=== PATIENT | female | born 1940 | race Caucasian/White ===

== ENCOUNTER 2017-04-06 08:00 | Outpatient (CLI) | payer MEDICARE, OTHER | END 2017-04-06 23:59 | disposition home or self-care (01) | LOC: LAB.R 08:00 | PROVIDERS: ATTEND Family Medicine | DX: R10.9 Unspecified abdominal pain (principal) | CPT/HCPCS: 87086 ==

== ENCOUNTER 2017-04-13 13:44 | Outpatient (CLI) | payer MEDICARE, OTHER ==
[2017-04-13] MEDS ORDERED: IOPAMIDOL-300 50 ML VIAL PO ONE (15:10)
[2017-04-13] MEDS ORDERED: IOPAMIDOL-300 100 ML VIAL IVP ONE (15:10)
--- NOTE | 2017-04-13 16:52 | CT Report ---
CONTRAST ENHANCED CT EXAM OF THE ABDOMEN AND PELVIS: 04/13/2017 COMPARISON: 06/04/2014 CLINICAL HISTORY: Abdominal pain. TECHNIQUE: The patient received 100 mL of Isovue-300 as a contrast agent. A CAT scan of the abdomen and pelvis was obtained at 5 x 5 mm intervals in axial, coronal and sagittal reconstructions. In accordance with CT protocol optimization, one or more of the following dose reduction techniques w ere utilized for this exam: automated exposure control, adjustment of mA and/or KV based on patient size, or use of iterative reconstructive technique. FINDINGS: Lower lobes of the lungs show no significant abnormality. Liver demonstrates once again s everal hypodense lesions within the liver. These show no change as compared to preceding exam, both in the size and number of these hypodense lesions. There are up to nine of these small lesions prese nt. This lack of change in number and size suggests that they represent small benign cysts. Spleen is normal. Pancreas shows no significant abnormality. Gallbladder shows no wall thickening. 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 No significant pyelocalyceal system dilatati on is seen. Ureters are not dilated. Adrenal glands appear normal. Surgical clips are once again n oted in and about the gastroesophageal junction. Periaortic and pericaval regions show no significant abnormality. Pelvis appears normal. Bowel gas pattern shows no significant abnormality. The small bowel appears normal. Colon shows a n ormal appendix of the retrocecal type. No significant diverticulosis is seen. Bones demonstrate mild anterior spurring in the lumbar spine. Moderate degree of disk space narrowin g is noted at L4-5 and L5-S1. IMPRESSION: MULTIPLE SMALL HYPODENSE LESIONS ARE ONCE AGAIN NOTED IN THE LIVER. THEY ARE UNCHANGED IN SIZE AND N UMBER SINCE PRECEDING EXAM OF 06/04/2014. THEY MOST LIKELY REPRESENT SMALL BENIGN LIVER CYSTS. PATIENT HAS A KNOWN HORSESHOE KIDNEY. MULTIPLE SURGICAL CLIPS ARE NOTED AT THE GASTROESOPHAGEAL JUNCTION ONCE AGAIN WITHOUT SIGNIFICANT YANNICK NGE. NORMAL APPENDIX. JOB #: [id number] EXT JOB #:[id number]
== END 2017-04-13 13:45 | disposition home or self-care (01) ==
LOC: DI 13:44
PROVIDERS: ATTEND Family Medicine
DX: K76.9 Liver disease, unspecified (principal)
CPT/HCPCS: 74177; Q9967

== ENCOUNTER 2017-11-15 06:16 | Outpatient (CLI) | payer MEDICARE, OTHER | END 2017-11-15 06:17 | disposition critical access hospital (66) | LOC: EMS 06:16 | PROVIDERS: ATTEND Surgery | DX: R07.9 Chest pain, unspecified (principal) | CPT/HCPCS: A0425; A0427 ==

== ENCOUNTER 2017-11-15 06:31 | Emergency (ER) | payer MEDICARE, OTHER ==
[2017-11-15 06:59] LABS: BASOPHILS % (AUTO) 0.5 %; EOSINOPHILS # (AUTO) 0.2 10^3/uL (0.0-0.7); EOSINOPHILS % (AUTO) 4.6 %; HGB - HEMOGLOBIN 14.3 g/dL (12.0-16.0); LYMPHOCYTES # (AUTO) 1.9 10^3/uL (1.5-3.5); LYMPHOCYTES % (AUTO) 41.1 %; MEAN CORPUSCULAR HEMOGLOBIN 30.3 pg (27.0-31.0); MEAN CORPUSCULAR HGB CONC 33.1 g/dL (32.0-36.0); MEAN CORPUSCULAR VOLUME 91.8 fL (81.0-99.0); MEAN PLATELET VOLUME 8.7 fL (7.9-10.8); MONOCYTES # (AUTO) 0.4 10^3/uL (0.0-1.0); MONOCYTES % (AUTO) 9.2 %; NEUTROPHILS % (AUTO) 44.6 %; PLT - PLATELET COUNT 200 10^3/uL (130-450); RED BLOOD COUNT 4.72 10^6/uL (4.20-5.40); RED CELL DISTRIBUTION WIDTH 13.5 % (12.0-15.0); WHITE BLOOD COUNT 4.6 x10^3/uL (4.8-10.8)
--- NOTE | 2017-11-15 07:03 | ED Physician Documentation ---
PD HPI CHEST PAIN - Stated complaint Stated Complaint: CP - Chief complaint Chief Complaint: Cardiac - History obtained from History obtained from: Patient - History of Present Illness Timing - onset: How many hours ago (3), Last night (3 am) Timing - onset during: Sleep Timing - duration: Hours (3) Quality: Aching, Indigestion, Pain Location: Substernal, Epigastric Radiation: Back, Left upper extremity Improved by: No: Rest Worsened by: No: Inspiration, Movement, Palpation Associated symptoms: Nausea. No: Shortness of air, Diaphoresis, Feeling faint / dizzy, General Weakness, Palpitations Similar symptoms before: No diagnosis (has had similar often but not as badly, often in AM or during sleep. Not exertional.) Recently seen: Clinic Review of Systems Ten Systems: 10 systems reviewed and negative Constitutional: denies: Fever, Chills Nose: denies: Rhinorrhea / runny nose, Congestion Throat: denies: Sore throat Cardiac: reports: Chest pain / pressure. denies: Palpitations, Pedal edema, Calf pain Respiratory: denies: Dyspnea, Cough GI: reports: Abdominal Pain (epigastric), Nausea. 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 11/15/17 Sucralfate 1 gm PO TID #20 tablet 11/15/17 - Allergies Allergies/Adverse Reactions: Allergies Allergy/AdvReac Type Severity Reaction Status Date / Time Penicillins Allergy Severe Respiratory Verified 11/15/17 06:50 acetaminophen [From Percocet] Allergy Mild Rash Verified 11/15/17 06:50 oxycodone HCl * Allergy Mild Rash Verified 11/15/17 06:50 [From Percocet] Sulfa (Sulfonamide Allergy Unknown Verified 11/15/17 06:51 Antibiotics) epinephrine AdvReac Severe hypoglycemi Verified 11/15/17 06:50 a - Social History Does the pt smoke?: No Smoking Status: Never smoker Does the pt drink ETOH?: Yes Does the pt have substance abuse?: No - Family History Family history: reports: CAD - Immunizations Immunizations are current?: Yes - POLST Patient has POLST: No PD ED PE NORMAL - Vitals Vital signs reviewed: Yes - General General: Alert and oriented X 3, Well developed/nourished - HEENT HEENT: Pharynx benign - Neck Neck: Supple, no meningeal sign, No adenopathy - Cardiac Cardiac: RRR, No murmur - Respiratory Respiratory: Clear bilaterally, Other (no chestwall tenderness) - Abdomen Abdomen: Normal bowel sounds, Soft, Non distended, No organomegaly, Other (some epigastric tenderness without guarding) - Back Back: No CVA TTP - Derm Derm: Normal color, Warm and dry - Neuro Neuro: Alert and oriented X 3, No motor deficit, Normal speech - Psych Psych: Normal mood, Normal affect Results - Vitals Vitals: Oxygen O2 Source Room air - EKG (time done) 06:37 Rate: Rate (enter#) (65) Rhythm: NSR [place]: Normal Intervals: Normal [place] QRS: Normal Ischemia: No: ST elevation c/w ischemia, ST depression - Labs Labs: Laboratory Tests 11/15/17 11/15/17 11/15/17 06:40 06:40 06:40 WBC 4.6 L RBC 4.72 Hgb 14.3 Hct 43.3 MCV 91.8 MCH 30.3 MCHC 33.1 RDW 13.5 Plt Count 200 MPV 8.7 Neut # 2.0 Lymph # 1.9 [place] # 0.4 Eos # 0.2 Baso # 0.0 Absolute Nucleated RBC 0.00 Nucleated RBC % 0.0 Sodium 139 Potassium 3.5 Chloride 108 Carbon Dioxide 25 Anion Gap 6.0 BUN 14 Creatinine 0.6 Estimated GFR (MDRD) 97 Glucose 102 H Calcium 8.1 L Total Bilirubin 0.4 AST 21 ALT 21 Alkaline Phosphatase 72 Troponin I < 0.04 Total Protein 5.7 L Albumin 3.4 Globulin 2.3 Albumin/Globulin Ratio 1.5 Lipase 29 - Rads (name of study) chest Radiology: Prelim report reviewed, EMP read contemporaneously (normal) PD MEDICAL DECISION MAKING - ED course Complexity details: considered differential (having frequent heartburn and using antacids often. More consistent symptoms here improved with GI cocktail. ECG, CXR and labs are okay. ), d/w patient Departure - Departure Disposition: 01 Home, Self Care Clinical Impression: Chest pain Qualifiers: Chest pain type: precordial pain Qualified Code(s): R07.2 - Precordial pain GERD (gastroesophageal reflux disease) Qualifiers: Esophagitis presence: with esophagitis Qualified Code(s): K21.0 - Gastro- esophageal reflux disease with esophagitis Condition: Stable Record reviewed to determine appropriate education?: Yes Instructions: ED GERD Follow-Up: Paola Tyler DO [Primary Care Provider] - Linette Fernandez MD [Provider Admit Priv/Credential] - Prescriptions: Omeprazole 20 mg PO DAILY #30 capsule. Sucralfate 1 gm PO TID #20 tablet Comments: This sounds like an irritation of the stomach and esophagus, commonly related to reflux. However there could be just irritation there separately. Given your symptoms recently, you could make sense to meet with a GI specialist to discuss potential EGD (scope) to evaluate the esophagus and stomach. Meanwhile take omeprazole acid reducing medicine daily for the next month and for the first week also use sucralfate to coat the esophagus and stomach to improve symptoms. There is no signs of heart disease going on at this time. Follow-up with your primary care as needed. Discharge Date/Time: 11/15/17 09:08
[2017-11-15 07:09] LABS: ALBUMIN 3.4 g/dL (3.2-5.5); ALBUMIN/GLOBULIN RATIO 1.5 (1.0-2.2); BILIRUBIN,TOTAL 0.4 mg/dL (0.2-1.0); CALCIUM 8.1 mg/dL (8.5-10.3); CREATININE 0.6 mg/dL (0.4-1.0); TOTAL PROTEIN 5.7 g/dL (6.7-8.2)
[2017-11-15] MEDS ORDERED: FAMOTIDINE 20 MG TABLET PO STA (07:24)
[2017-11-15] MEDS ORDERED: LIDOCAINE VISCOUS 2% 15 ML UDC MM STA (07:24)
[2017-11-15] MEDS ORDERED: MAG HYDROX/AL HYDROX/SIMETH 30 ML UDC PO STA (07:24)
--- NOTE | 2017-11-15 07:54 | XRAY Report ---
EXAM: CHEST RADIOGRAPHY EXAM DATE: 11/15/2017 07:48 AM. CLINICAL HISTORY: Acute onset of left-sided chest pain. COMPARISON: 06/04/2014. TECHNIQUE: 2 views. FINDINGS: Lungs/Pleura: Lung volumes upper normal. No consolidation. No vascular congestion. No pneumothorax. N o pleural effusions. Mediastinum: Heart size is upper normal. Aorta is mildly tortuous. Other: No acute osseous abnormalities. Degenerative changes of the thoracic spine. IMPRESSION: 1. No acute disease in the chest. [facility] Referring Provider Line: [phone] SITE ID: [id number]
[2017-11-15 08:55] VITALS: BP 120/57
== END 2017-11-15 09:08 | disposition home or self-care (01) ==
LOC: EDUNIT# → ED 06:31
DX: R07.2 Precordial pain (principal); K21.0 Gastro-esophageal reflux disease with esophagitis; E78.00 Pure hypercholesterolemia, unspecified; Z87.442 Personal history of urinary calculi
CPT/HCPCS: 36415; 71046; 80053; 83690; 84484; 85025; 93005; 99284; A9270

== ENCOUNTER 2018-01-26 12:47 | Outpatient (CLI) | payer MEDICARE, OTHER | END 2018-01-26 12:48 | disposition home or self-care (01) | LOC: DI 12:47 | PROVIDERS: ATTEND Physician Assistant Medical | DX: R01.1 Cardiac murmur, unspecified (principal); I51.9 Heart disease, unspecified; I51.7 Cardiomegaly | CPT/HCPCS: 93306 ==

== ENCOUNTER 2018-05-16 11:50 | Emergency (ER) | payer MEDICARE, OTHER ==
--- NOTE | 2018-05-16 16:17 | ED Physician Documentation ---
History of Present Illness - Stated complaint Stated Complaint: L FOOT SWELLING - Chief complaint Chief Complaint: Ext Problem - Additonal information Additional information: hx from pt 77 f factor V leiden nor clots so not on blood thinners dropped a rck on her foot 5 weeks ago inc pain and swelling to lat foot reently no calf swelling but painful but that coud be her fibromyalgia as well and some discoloration to the R foot where she had neuroma surgery in 1995 so she was concerned about blood clots went to Dr Duran office and states nurse there told her they could not do xrays or ultrasounds and so pt would need to go to the ER for those tests no CP or SOA Review of Systems Cardiac: denies: Chest pain / pressure Respiratory: denies: Dyspnea Musculoskeletal: reports: Extremity pain. 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 11/15/17 05/16/18 Sucralfate 1 gm PO TID #20 tablet 11/15/17 05/16/18 - Allergies Allergies/Adverse Reactions: Allergies Allergy/AdvReac Type Severity Reaction Status Date / Time Penicillins Allergy Severe Respiratory Verified 05/16/18 14:10 oxycodone HCl * Allergy Mild Rash Verified 05/16/18 14:10 [From Percocet] Sulfa (Sulfonamide Allergy Unknown Verified 05/16/18 14:10 Antibiotics) epinephrine AdvReac Severe hypoglycemi Verified 05/16/18 14:10 a - Social History Does the pt smoke?: No Smoking Status: Never smoker Does the pt drink ETOH?: Yes Does the pt have substance abuse?: No - Immunizations Immunizations are current?: Yes - POLST Patient has POLST: No PD ED PE NORMAL - Vitals Vital signs reviewed: Yes - Cardiac Cardiac: RRR - Respiratory Respiratory: No respiratory distress, Clear bilaterally - Extremities Extremities: Other (RLE, two dorsla foot surgical scars, some patchy mild discoloration that is not warm or c/w cellultiis, cool but stong pulse and cap refll. LLE swelling to lateral mid foot and TTP, calf TTP but not sweollne, MSV intact) Results - Vitals Vitals: Vital Signs - 24 hr 05/16/18 05/16/18 12:21 15:02 Temperature 36.1 C L 36.5 C Heart Rate 70 70 Respiratory 18 18 Rate Blood Pressure 147/77 H 131/60 H O2 Saturation 97 97 Oxygen O2 Source Room air - Rads (name of study) loida LE dopplers Radiology: See rad report (no DVT) foot Radiology: See rad report (no fx) PD MEDICAL DECISION MAKING - Sepsis Event Vital Signs: Vital Signs - 24 hr 05/16/18 05/16/18 12:21 15:02 Temperature 36.1 C L 36.5 C Heart Rate 70 70 Respiratory 18 18 Rate Blood Pressure 147/77 H 131/60 H O2 Saturation 97 97 Oxygen O2 Source Room air Departure - Departure Disposition: 01 Home, Self Care Clinical Impression: Foot swelling Condition: Good Follow-Up: Paola Tyler DO [Provider Admit Priv/Credential] - Comments: The ultrasounds do not show any blood clot and the xray does not show any fractures Recommend ice for 20 minutes every few hours and elevation to decrease the swelling It is fine to walk.
--- NOTE | 2018-05-16 16:54 | Ultrasound Report ---
Procedure Date: 05/16/2018 Accession Number: [id number] / [id number] Procedure: US - Duplex Ext Veins Bilateral CPT Code: FULL RESULT: EXAM: BILATERAL LOWER EXTREMITY VENOUS ULTRASOUND. EXAM DATE: 05/16/2018 04:23 PM. CLINICAL HISTORY: Factor V Leiden def pain, swell, discolor. COMPARISON: 08/24/2017. TECHNIQUE: Real-time sonographic vascular imaging was performed by the business administrator through the lower extremities utilizing both color-flow and Doppler spectral analysis. Multiple guest experience representative static images were saved for review. FINDINGS: Right: Common Femoral Vein (CFV): Normal. CFV-GSV Junction: Normal. Profunda Femoral Vein (PFV): Normal. Femoral Vein (FV) Prox: Normal. Femoral Vein (FV) Mid: Normal. Femoral Vein (FV) Dist: Normal. Popliteal Vein: Normal. Posterior Tibial Veins: Normal. Peroneal Veins: Normal. Left: Common Femoral Vein (CFV): Normal. CFV-GSV Junction: Normal. Profunda Femoral Vein (PFV): Normal. Femoral Vein (FV) Prox: Normal. Femoral Vein (FV) Mid: Normal. Femoral Vein (FV) Dist: Normal. Popliteal Vein: Normal. Posterior Tibial Veins: Normal. Peroneal Veins: Normal. Other: None. IMPRESSION: No evidence for deep venous thrombosis bilaterally. [facility]
--- NOTE | 2018-05-16 16:56 | XRAY Report ---
Procedure Date: 05/16/2018 Accession Number: [id number] / [id number] Procedure: XR - Foot 3 View LT CPT Code: FULL RESULT: EXAM: LEFT FOOT RADIOGRAPHY. EXAM DATE: 05/16/2018 03:15 PM. CLINICAL HISTORY: Dropped rock on foot 5 weeks ago, still hurts. COMPARISON: 05/08/2011. TECHNIQUE: 3 views. FINDINGS: Bones: Normal. No fractures or bone lesions. Joints: No dislocation. Soft Tissues: Mild soft tissue swelling at the first MTP joint. IMPRESSION: 1. No fracture. 2. No dislocation. Mild soft tissue swelling at the first MTP joint. [facility]
[2018-05-16 17:22] VITALS: BP 141/71
== END 2018-05-16 17:21 | disposition home or self-care (01) ==
LOC: ED 11:50
DX: M79.89 Other specified soft tissue disorders (principal); M79.672 Pain in left foot; D68.51 Activated protein C resistance; E78.00 Pure hypercholesterolemia, unspecified; K21.9 Gastro-esophageal reflux disease without esophagitis; Z87.442 Personal history of urinary calculi
CPT/HCPCS: 93970; 99283

== ENCOUNTER 2018-06-08 09:58 | Outpatient (CLI) | payer MEDICARE, OTHER ==
--- NOTE | 2018-06-09 16:09 | MRI Report ---
Procedure Date: 06/08/2018 Accession Number: [id number] / [id number] Procedure: MRI - Foot LT W/O CPT Code: FULL RESULT: EXAM: LEFT MIDFOOT MRI WITHOUT CONTRAST EXAM DATE: 06/08/2018 11:06 AM. CLINICAL HISTORY: FOOT JOINT PAIN, LEFT. COMPARISON: 05/16/2018 left foot radiographs. TECHNIQUE: Multiplanar, multisequence T1-weighted and fluid-sensitive sequences of the midfoot without contrast. Other: None. FINDINGS: Bones: No fractures. No osseous lesions. There is marrow edema within the third and fourth metatarsal bases. No cortical thickening or visible periostitis. There is also small focus of subchondral edema within the navicular at the talonavicular joint. Marrow signal is otherwise normal. Articular Cartilage: Unremarkable. Ligaments: The visualized intertarsal, intermetatarsal, and tarsometatarsal ligaments are intact. This includes the Lisfranc ligament. The visualized collateral ligaments are intact. Tendons: The flexor and extensor tendons are unremarkable. Musculature: No edema or fatty atrophy. Other: No effusions. The visualized portion of the tarsal tunnel is unremarkable. No intermetatarsal bursitis. The subcutaneous tissues are unremarkable. IMPRESSION: 1. Mild marrow edema within the third and fourth metatarsal bases is somewhat nonspecific and may reflect stress reaction or potentially early degenerative changes, although the tarsometatarsal joints themselves are normal in appearance. No evidence of acute fracture. [facility] MUSCULOSKELETAL RADIOLOGY SECTION
== END 2018-06-08 09:59 | disposition home or self-care (01) ==
LOC: DI 09:58
PROVIDERS: ATTEND Family Medicine
DX: M79.672 Pain in left foot (principal)

== ENCOUNTER 2018-06-19 08:40 | Outpatient (CLI) | payer MEDICARE, OTHER ==
[2018-06-19 12:24] LABS: BASOPHILS % (AUTO) 0.6 %; EOSINOPHILS # (AUTO) 0.2 10^3/uL (0.0-0.7); EOSINOPHILS % (AUTO) 4.1 %; HGB - HEMOGLOBIN 14.5 g/dL (12.0-16.0); LYMPHOCYTES # (AUTO) 1.3 10^3/uL (1.5-3.5); LYMPHOCYTES % (AUTO) 28.2 %; MEAN CORPUSCULAR HEMOGLOBIN 31.2 pg (27.0-31.0); MEAN CORPUSCULAR HGB CONC 34.3 g/dL (32.0-36.0); MEAN PLATELET VOLUME 8.9 fL (7.9-10.8); MONOCYTES # (AUTO) 0.4 10^3/uL (0.0-1.0); MONOCYTES % (AUTO) 9.4 %; NEUTROPHILS # (AUTO) 2.7 10^3/uL (1.5-6.6); NEUTROPHILS % (AUTO) 57.7 %; PLT - PLATELET COUNT 195 10^3/uL (130-450); RED BLOOD COUNT 4.63 10^6/uL (4.20-5.40); RED CELL DISTRIBUTION WIDTH 13.8 % (12.0-15.0); WHITE BLOOD COUNT 4.6 x10^3/uL (4.8-10.8)
[2018-06-19 12:25] LABS: ALBUMIN/GLOBULIN RATIO 1.5 (1.0-2.2); ALKALINE PHOSPHATASE 84 IU/L (42-121); ALT ALANINE AMINOTRANSFERASE 22 IU/L (10-60); AST ASPARTATE AMINOTRANSFERASE 22 IU/L (10-42); BILIRUBIN,TOTAL 0.8 mg/dL (0.2-1.0); BUN - BLOOD UREA NITROGEN 17 mg/dL (6-20); CALCIUM 9.5 mg/dL (8.5-10.3); CARBON DIOXIDE - CO2 29 mmol/L (21-32); CHLORIDE 102 mmol/L (101-111); CHOL/HDL RATIO 4.1 (<4.4); CHOLESTEROL 151 mg/dL; CREATININE 0.7 mg/dL (0.4-1.0); GFR - MDRD 81 (>89); GLUCOSE 108 mg/dL (70-100); HDL CHOLESTEROL 37 mg/dL; LDL CHOLESTEROL,CALCULATED 93 mg/dL; LDL/HDL RATIO 2.5 (<4.4); SODIUM 139 mmol/L (135-145); TOTAL PROTEIN 6.6 g/dL (6.7-8.2); VLDL CHOLESTEROL 21 mg/dL
[2018-06-19 12:33] LABS: HB2 TOTAL 15.1 g/dL; HEMOGLOBIN A1C 0.6 g/dL; HEMOGLOBIN A1C % 5.8 % (4.6-6.2)
[2018-06-19 12:36] LABS: THYROID STIMULATING HORMONE 1.78 uIU/mL (0.34-5.60)
== END 2018-06-19 08:41 ==
LOC: LAB.WCP 08:40
PROVIDERS: ATTEND Family Medicine
DX: R20.9 Unspecified disturbances of skin sensation (principal); E78.5 Hyperlipidemia, unspecified; R73.01 Impaired fasting glucose; E03.9 Hypothyroidism, unspecified
CPT/HCPCS: 36415; 80053; 80061; 82607; 83036; 83721; 84443; 85025

== ENCOUNTER 2019-04-27 10:59 | Outpatient (CLI) | payer MEDICARE, OTHER | END 2019-04-27 11:00 | disposition critical access hospital (66) | LOC: EMS 10:59 | PROVIDERS: ATTEND Surgery | DX: R55 Syncope and collapse (principal); R53.1 Weakness; R19.7 Diarrhea, unspecified | CPT/HCPCS: A0425; A0429 ==

== ENCOUNTER 2019-04-27 11:18 | Emergency (ER) | payer MEDICARE, OTHER ==
[2019-04-27 11:44] LABS: BASOPHILS % (AUTO) 0.5 %; EOSINOPHILS # (AUTO) 0.1 10^3/uL (0.0-0.7); EOSINOPHILS % (AUTO) 2.3 %; HGB - HEMOGLOBIN 15.2 g/dL (12.0-16.0); LYMPHOCYTES # (AUTO) 1.3 10^3/uL (1.5-3.5); LYMPHOCYTES % (AUTO) 29.2 %; MEAN CORPUSCULAR HGB CONC 33.6 g/dL (32.0-36.0); MEAN CORPUSCULAR VOLUME 92.1 fL (81.0-99.0); MEAN PLATELET VOLUME 10.4 fL (7.9-10.8); MONOCYTES # (AUTO) 0.4 10^3/uL (0.0-1.0); MONOCYTES % (AUTO) 8.9 %; NEUTROPHILS # (AUTO) 2.6 10^3/uL (1.5-6.6); NEUTROPHILS % (AUTO) 58.6 %; PLT - PLATELET COUNT 197 10^3/uL (130-450); RED BLOOD COUNT 4.91 10^6/uL (4.20-5.40); RED CELL DISTRIBUTION WIDTH 13.2 % (12.0-15.0); WHITE BLOOD COUNT 4.4 x10^3/uL (4.8-10.8)
[2019-04-27 11:57] LABS: ALBUMIN 4.1 g/dL (3.2-5.5); ALBUMIN/GLOBULIN RATIO 1.6 (1.0-2.2); BILIRUBIN,TOTAL 0.7 mg/dL (0.2-1.0); CALCIUM 9.8 mg/dL (8.5-10.3); CREATININE 0.7 mg/dL (0.4-1.0); TOTAL PROTEIN 6.7 g/dL (6.7-8.2)
[2019-04-27] MEDS ORDERED: SODIUM CHLORIDE 0.9% 1,000 ML IV ONE (12:10)
--- NOTE | 2019-04-27 12:12 | ED Physician Documentation ---
History of Present Illness - Stated complaint Stated Complaint: NEAR SYNCOPE - Chief complaint Chief Complaint: General - History obtained from History obtained from: Patient, Family, EMS - History of Present Illness Timing: Today (78-year-old woman who is been on the keto diet for a week and has had a couple of episodes of diarrhea this week without abdominal pain or nausea was in nondenominational today and felt dizzy for about 5 minutes and then helped herself to the ground without syncope. Now feels back to normal. There was no chest pain or trouble breathing with this. No calf pain or pedal edema. Of note she also has a complaint of several months worth of a constant frontal and occipital headache that she attributed to sinus symptoms, but no relief from allergy or decongestant agents..) Review of Systems Ten Systems: 10 systems reviewed and negative Constitutional: denies: Fever, Chills, Fatigue Nose: reports: Rhinorrhea / runny nose, Sinus pressure / pain Throat: denies: Sore throat Respiratory: denies: Dyspnea, Cough GI: reports: Diarrhea. 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 11/15/17 05/16/18 Sucralfate 1 gm PO TID #20 tablet 11/15/17 05/16/18 - Allergies Allergies/Adverse Reactions: Allergies Allergy/AdvReac Type Severity Reaction Status Date / Time Penicillins Allergy Severe Respiratory Verified 05/16/18 14:10 oxycodone HCl * Allergy Mild Rash Verified 05/16/18 14:10 [From Percocet] Sulfa (Sulfonamide Allergy Unknown Verified 05/16/18 14:10 Antibiotics) epinephrine AdvReac Severe hypoglycemi Verified 05/16/18 14:10 a - Social History Does the pt smoke?: No Smoking Status: Never smoker Does the pt drink ETOH?: Yes Does the pt have substance abuse?: No - Immunizations Immunizations are current?: Yes - POLST Patient has POLST: No PD ED PE NORMAL - Vitals Vital signs reviewed: Yes - General General: Alert and oriented X 3, No acute distress - HEENT HEENT: PERRL, EOMI - Neck Neck: Supple, no meningeal sign, No bony TTP - Cardiac Cardiac: RRR, No murmur - Respiratory Respiratory: No respiratory distress, Clear bilaterally - Abdomen Abdomen: Normal bowel sounds, Soft, Non tender - Back Back: No CVA TTP, No spinal TTP - Derm Derm: Normal color, Warm and dry - Extremities Extremities: No edema, No calf tenderness / cord - Neuro Neuro: Alert and oriented X 3, supervisor liquefaction 2-12 intact, No motor deficit, No sensory deficit, Normal speech Results - Vitals Vitals: Vital Signs - 24 hr 04/27/19 04/27/19 11:22 11:36 Temperature 36.5 C 36.5 C Heart Rate 83 73 Respiratory 16 14 Rate Blood Pressure 148/80 H 125/63 O2 Saturation 96 95 Oxygen O2 Source Room air - EKG (time done) 1127 Rate: Rate (enter#) (75) Rhythm: NSR [place]: Normal QRS: Low voltage Ischemia: Non specific changes (submm ALMA inferior, no chg from 11/15/17) Computer interpretation: Agree with computer - Labs Labs: Laboratory Tests 04/27/19 04/27/19 11:38 11:38 WBC 4.4 L RBC 4.91 Hgb 15.2 Hct 45.2 MCV 92.1 MCH 31.0 MCHC 33.6 RDW 13.2 Plt Count 197 MPV 10.4 Neut # (Auto) 2.6 Lymph # (Auto) 1.3 L [place] # (Auto) 0.4 Eos # (Auto) 0.1 Baso # (Auto) 0.0 Absolute Nucleated RBC 0.00 Nucleated RBC % 0.0 Sodium 138 Potassium 4.2 Chloride 103 Carbon Dioxide 24 Anion Gap 11.0 BUN 20 Creatinine 0.7 Estimated GFR (MDRD) 81 L Glucose 103 H Calcium 9.8 Total Bilirubin 0.7 AST 25 ALT 27 Alkaline Phosphatase 81 Total Protein 6.7 Albumin 4.1 Globulin 2.6 Albumin/Globulin Ratio 1.6 Lipase 38 PD MEDICAL DECISION MAKING - ED course ED course: 78-year-old woman with presyncopal episode preceded by a week's worth of the keto diet And some diarrheal illness suggestive of dehydration. She was administered IV fluids here and felt fine. The remainder of her work-up was negative, although the other concerning issue was several months worth of a basically constant headache which is of course concerning for mass lesion and as such a head CT was done without pertinent positive findings. Departure - Departure Clinical Impression: Pre-syncope, Dehydration, Headache Condition: Good Record reviewed to determine appropriate education?: Yes Health Concerns: dizzy episode, headache Plan of Treatment: Labs, CTH, and IVF Care Goals: prevent further dehydration with increased fluid intake. Followup with Dr Julio Cesar aldrich Assessment: as above Instructions: ED Dehydration, ED Near Syncope Unkn
[2019-04-27 13:52] VITALS: BP 139/80
--- NOTE | 2019-04-27 13:58 | CT Report ---
Reason: headache Procedure Date: 04/27/2019 Accession Number: [id number] / [id number] Procedure: CT - HEAD WO CPT Code: FULL RESULT: EXAM: CT HEAD EXAM DATE: 04/27/2019 12:33 PM. CLINICAL HISTORY: Headache. COMPARISON: HEAD 07/24/2010 2:04 PM MRI BRAIN W TECHNIQUE: Multiaxial CT images were obtained from the foramen magnum to the vertex. Reformats: Sagittal and coronal. IV contrast: None. In accordance with CT protocol optimization, one or more of the following dose reduction techniques were utilized for this exam: automated exposure control, adjustment of mA and/or KV based on patient size, or use of iterative reconstructive technique. FINDINGS: Parenchyma: No evidence of an acute vascular insult or acute parenchymal hemorrhage. No midline shift. No mass-effect is mild parenchymal volume loss with periventricular regions of low attenuation. No midline shift. Extraaxial Spaces: Normal for age. No subdural or epidural collections identified. Ventricles: Normal in size and position. Sinuses and Orbits: Imaged paranasal sinuses, orbits, and mastoids show no significant abnormality. Bones: No evidence of fracture or calvarial defect. Other: Globes and orbits are unremarkable except for changes status post lens surgery. Minimal vascular calcifications. IMPRESSION: 1. No acute intracranial abnormality is identified. [facility]
== END 2019-04-27 13:51 | disposition home or self-care (01) ==
LOC: EDUNIT# → ED 11:18
DX: E86.0 Dehydration (principal)
CPT/HCPCS: 36415; 70450; 80053; 83690; 85025; 93005; 96360; 99283; 99284

== ENCOUNTER 2019-04-28 12:32 | Outpatient (CLI) | payer MEDICARE, OTHER ==
[2019-04-28] MEDS ORDERED: IOVERSOL 320 100 ML VIAL IVP ONE ×2 (12:43→15:46)
--- NOTE | 2019-04-28 13:57 | CT Report ---
Reason: NEAR SYNCOPE, FACTOR V LEIDEN MUTATION, HETEROZYGO Procedure Date: 04/28/2019 Accession Number: [id number] / [id number] Procedure: CT - ANGIO CHEST W/WO CPT Code: FULL RESULT: EXAM: CT ANGIOGRAM CHEST EXAM DATE: 04/28/2019 01:27 PM. CLINICAL HISTORY: Near syncope, factor V Leiden mutation, heterozygous. COMPARISON: ABDOMEN/PELVIS W/ 04/13/2017 3:02 PM. TECHNIQUE: Routine helical imaging was performed through the chest in the pulmonary arterial phase. IV Contrast: OPTI 320 80ML. Reconstructions: Coronal 3-D MIP reconstructions.Sagittal and coronal. In accordance with CT protocol optimization, one or more of the following dose reduction techniques were utilized for this exam: automated exposure control, adjustment of mA and/or KV based on patient size, or use of iterative reconstructive technique. FINDINGS: Pulmonary Arteries: Diagnostic quality: Adequate through the segmental arteries. No evidence for acute or chronic pulmonary emboli. RV/LV is within normal limits. There is no interventricular septal bowing. There is no reflux of contrast material in the IVC. Lungs/Pleura: There is a 1.0 x 0.7 cm partially calcified right lower lobe nodule with nearby spiculation, see image 104 series 11 and image 78 series 5. No other lung mass. Pleural spaces are clear. Mediastinum: Normal. No cardiac enlargement or adenopathy. Thoracic Aorta: Unremarkable. Upper Abdomen: Again seen are multiple hepatic hypodensities which are not characterized on this study. Prior fundoplication with small hernia. Other: None. IMPRESSION: No pulmonary embolism. Recommend follow-up of the described nodule(s) according to the following guidelines: Fleischner Society Recommendations 2017 MacMahon et al. Radiology 2017 Solid Nodules-Low Risk Patients: >8 mm (single) -Consider CT, PET/CT, or tissue sampling at 3 months Solid Nodules-High Risk Patients: >8 mm (single) -Consider CT, PET/CT, or tissue sampling at 3 months Redemonstration of uncharacterized hypodense hepatic lesions, not significantly changed as partially visualized. If clinically indicated, right upper quadrant ultrasound could be used to determine whether these represent cysts. RADIA
== END 2019-04-28 12:33 | disposition home or self-care (01) ==
LOC: DI 12:32
PROVIDERS: ATTEND Family Medicine
DX: R55 Syncope and collapse (principal); D68.51 Activated protein C resistance; E03.9 Hypothyroidism, unspecified
CPT/HCPCS: 36415; 71275; 82962; 84443; Q9967

== ENCOUNTER 2019-07-31 12:30 | Outpatient (CLI) | payer MEDICARE, OTHER ==
--- NOTE | 2019-08-04 16:11 | CT Report ---
Reason: PULMONARY NODULE Procedure Date: 07/31/2019 Accession Number: [id number] / [id number] Procedure: CT - CHEST WO CPT Code: FULL RESULT: EXAM: CT CHEST EXAM DATE: 07/31/2019 12:50 PM. CLINICAL HISTORY: PULMONARY NODULE. COMPARISONS: CHEST ANGIO 04/28/2019 1:19 PM ABDOMEN/PELVIS W/ 04/13/2017 3:02 PM CHEST 2 VIEW 11/15/2017 7:26 AM. TECHNIQUE: Routine helical CT imaging was performed through the chest. IV contrast: None. Reconstructions: Coronal and sagittal. In accordance with CT protocol optimization, one or more of the following dose reduction techniques were utilized for this exam: automated exposure control, adjustment of mA and/or KV based on patient size, or use of iterative reconstructive technique. FINDINGS: Lungs/Pleura: Again seen is a 1 x 0.6 cm partially calcified spiculated nodule right lower lobe lung (4/179), stable. Lungs otherwise clear. No additional mass or infiltrate seen. Mediastinum: Aortic and coronary artery calcification, stable. Heart size normal. No lymphadenopathy. Bones: Unremarkable. Visualized Abdomen: Surgical clips adjacent to the gastroesophageal junction, stable. Visualized upper abdomen otherwise unremarkable. Other: None. IMPRESSION: 1. Stable 1 x 0.6 cm partially calcified right lower lobe pulmonary nodule, unchanged from 04/28/2019. Continued follow-up is recommended with either follow-up CT in 9 months, PET CT and/or biopsy. RADIA
== END 2019-07-31 12:31 | disposition home or self-care (01) ==
LOC: DI 12:30
PROVIDERS: ATTEND Internal Medicine
DX: R91.1 Solitary pulmonary nodule (principal)
CPT/HCPCS: 71250

== ENCOUNTER 2019-08-08 08:00 | Outpatient (CLI) | payer MEDICARE, OTHER ==
[2019-08-08 13:03] LABS: CHOL/HDL RATIO 3.9 (<4.4); CHOLESTEROL 159 mg/dL; HDL CHOLESTEROL 41 mg/dL; LDL CHOLESTEROL,CALCULATED 90 mg/dL; LDL/HDL RATIO 2.2 (<4.4); VLDL CHOLESTEROL 28 mg/dL
== END 2019-08-08 23:59 | disposition home or self-care (01) ==
LOC: LAB.WCP 08:00
PROVIDERS: ATTEND Nurse Practitioner Gerontology
DX: E78.5 Hyperlipidemia, unspecified (principal)
CPT/HCPCS: 36415; 80061; 83721

== ENCOUNTER 2019-11-06 11:33 | Outpatient (CLI) | payer MEDICARE, OTHER | END 2019-11-06 11:34 | disposition critical access hospital (66) | LOC: EMS 11:33 | PROVIDERS: ATTEND Surgery | DX: R10.10 Upper abdominal pain, unspecified (principal) | CPT/HCPCS: A0425; A0429 ==

== ENCOUNTER 2019-11-06 11:50 | Day surgery (SDC) | payer MEDICARE, OTHER ==
[2019-11-06 12:29] LABS: BASOPHILS % (AUTO) 0.4 %; EOSINOPHILS # (AUTO) 0.2 10^3/uL (0.0-0.7); EOSINOPHILS % (AUTO) 3.1 %; HGB - HEMOGLOBIN 15.9 g/dL (12.0-16.0); LYMPHOCYTES # (AUTO) 1.7 10^3/uL (1.5-3.5); LYMPHOCYTES % (AUTO) 34.7 %; MEAN CORPUSCULAR HGB CONC 32.8 g/dL (32.0-36.0); MEAN CORPUSCULAR VOLUME 94.5 fL (81.0-99.0); MEAN PLATELET VOLUME 10.8 fL (7.9-10.8); MONOCYTES # (AUTO) 0.4 10^3/uL (0.0-1.0); NEUTROPHILS # (AUTO) 2.6 10^3/uL (1.5-6.6); NEUTROPHILS % (AUTO) 52.6 %; PLT - PLATELET COUNT 223 10^3/uL (130-450); RED BLOOD COUNT 5.13 10^6/uL (4.20-5.40); RED CELL DISTRIBUTION WIDTH 13.6 % (12.0-15.0); WHITE BLOOD COUNT 4.9 x10^3/uL (4.8-10.8)
[2019-11-06 12:38] LABS: ALBUMIN 4.5 g/dL (3.2-5.5); ALBUMIN/GLOBULIN RATIO 1.5 (1.0-2.2); BILIRUBIN,TOTAL 0.6 mg/dL (0.2-1.0); CALCIUM 9.7 mg/dL (8.5-10.3); CREATININE 0.8 mg/dL (0.4-1.0); TOTAL PROTEIN 7.5 g/dL (6.7-8.2)
[2019-11-06] MEDS ORDERED: HYDROmorphone 1 MG/ML CARPUJECT IVP STA (12:43)
[2019-11-06] MEDS ORDERED: ONDANSETRON 4 MG/2 ML VIAL IVP STA (12:43)
--- NOTE | 2019-11-06 12:45 | ED Physician Documentation ---
PD HPI ABD PAIN - Stated complaint Stated Complaint: ABD PX - Chief complaint Chief Complaint: Abd Pain - History obtained from History obtained from: Patient - History of Present Illness Timing - onset: Today (79-year-old woman with history of hiatal hernia and Rafaela fundoplication later status post dilation presents with sudden severe epigastric pain radiating to left shoulder after eating a small breakfast this morning. She is been on the keto diet for the last 7 months or so, "but I cheat a lot." Pain is severe and associated with nausea and vomiting of mucus. She is able to keep water down. Had a fairly normal bowel movement this morning. No fevers. She still has her gallbladder. Reportedly prehospital EKG was normal but it does not accompany her.) Review of Systems Ten Systems: 10 systems reviewed and negative Constitutional: denies: Fever, Chills Throat: denies: Dental pain / toothache, Sore throat Cardiac: denies: Chest pain / pressure, Palpitations, Pedal edema, Calf pain Respiratory: denies: Dyspnea, Cough PD PAST MEDICAL HISTORY - Past Medical History Cardiovascular: High cholesterol Respiratory: None Endocrine/Autoimmune: None GI: GERD : Kidney stones HEENT: None Psych: None Musculoskeletal: None - Past Surgical History Past Surgical History: Yes General: EGD, Colonoscopy Ortho: Rotator cuff repair, Carpal Tunnel surgery /[employer]PL[employer] 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 - Present Medications Home Medications: Ambulatory Orders Medication Instructions Recorded Confirmed Levothyroxine Sodium [Synthroid] 100 mcg PO QDAC 04/28/13 11/06/19 Ascorbic Acid [Vitamin C] 1,000 mg PO DAILY 11/06/19 11/06/19 Cyclobenzaprine [Flexeril] 10 mg PO TID PRN 11/06/19 11/06/19 Multivitamin [Theragran] 1 each PO DAILY 11/06/19 11/06/19 [place]-3/Dha/Epa/Fish Oil [Fish Oil 1,000 mg PO BID 11/06/19 11/06/19 1,000 mg Softgel] Simvastatin [Zocor] 40 mg PO QPM 11/06/19 11/06/19 - Allergies Allergies/Adverse Reactions: Allergies Allergy/AdvReac Type Severity Reaction Status Date / Time Penicillins Allergy Severe Respiratory Verified 11/06/19 11:58 oxycodone HCl * Allergy Mild Rash Verified 01/16/20 11:58 [From Percocet] Sulfa (Sulfonamide Allergy Unknown Verified 11/06/19 11:58 Antibiotics) epinephrine AdvReac Severe hypoglycemi Verified 11/06/19 11:58 a - Social History Does the pt smoke?: No Smoking Status: Never smoker Does the pt drink ETOH?: Yes Does the pt have substance abuse?: No - Immunizations Immunizations are current?: Yes - POLST Patient has POLST: No PD ED PE NORMAL - Vitals Vital signs reviewed: Yes - General General: Alert and oriented X 3, Other (Appears uncomfortable) - HEENT HEENT: PERRL, EOMI - Neck Neck: Supple, no meningeal sign, No bony TTP - Cardiac Cardiac: RRR, No murmur - Respiratory Respiratory: No respiratory distress, Clear bilaterally - Abdomen Abdomen: Other (Slightly hyperactive bowel tones, soft belly with exquisite tenderness in the right upper quadrant and positive De Santiago sign) - Back Back: No CVA TTP, No spinal TTP - Derm Derm: Normal color, Warm and dry - Extremities Extremities: No edema, No calf tenderness / cord - Neuro Neuro: Alert and oriented X 3, Normal speech Results - Vitals Vitals: Vital Signs - 24 hr 11/06/19 11/06/19 11/06/19 11:51 12:13 13:00 Temperature 36.6 C Heart Rate 64 60 63 Respiratory 16 18 18 Rate Blood Pressure 147/76 H 136/48 H 146/89 H O2 Saturation 98 96 98 11/06/19 11/06/19 14:11 16:57 Temperature Heart Rate 63 78 Respiratory 16 16 Rate Blood Pressure 120/57 L 141/79 H O2 Saturation 92 95 Oxygen O2 Source Room air - EKG (time done) 1243 Rate: Rate (enter#) (64) Rhythm: NSR [place]: Normal Intervals: Normal ID QRS: Low voltage Ischemia: Non specific changes Computer interpretation: Agree with computer - Labs Labs: Laboratory Tests 11/06/19 11/06/19 11/06/19 12:00 12:05 12:05 WBC 4.9 RBC 5.13 Hgb 15.9 Hct 48.5 H MCV 94.5 MCH 31.0 MCHC 32.8 RDW 13.6 Plt Count 223 MPV 10.8 Neut # (Auto) 2.6 Lymph # (Auto) 1.7 [place] # (Auto) 0.4 Eos # (Auto) 0.2 Baso # (Auto) 0.0 Absolute Nucleated RBC 0.00 Nucleated RBC % 0.0 Sodium 140 Potassium 4.2 Chloride 103 Carbon Dioxide 28 Anion Gap 9.0 BUN 22 H Creatinine 0.8 Estimated GFR (MDRD) 69 L Glucose 96 Calcium 9.7 Total Bilirubin 0.6 AST 23 ALT 21 Alkaline Phosphatase 75 Total Protein 7.5 Albumin 4.5 Globulin 3.0 Albumin/Globulin Ratio 1.5 Lipase 45 Urine Color LT. YELLOW Urine Clarity CLEAR Urine pH 6.0 Ur Specific [place] <=1.005 Urine Protein NEGATIVE Urine Glucose (UA) NEGATIVE Urine Ketones NEGATIVE Urine Occult Blood NEGATIVE Urine Nitrite NEGATIVE Urine Bilirubin NEGATIVE Urine Urobilinogen 0.2 (NORMAL) Ur Leukocyte Esterase NEGATIVE Ur Microscopic Review NOT INDICATED Urine Culture Comments NOT INDICATED - Rads (name of study) RUQ sono Radiology: EMP read contemporaneously (No sludge or stones, somewhat dilated gallbladder but no other evidence of cholecystitis.) CT angiography of the chest/abd/pelvis Radiology: EMP read contemporaneously (Heterogenous splenic enhancement, a bezoar in the lower esophagus) PD MEDICAL DECISION MAKING - ED course ED course: 79-year-old woman with history of Rafaela fundoplication and later had a dilatation of same presents with severe epigastric pain radiating the left shoulder after eating breakfast this morning. Initially before pain medication was exquisitely tender in the right upper quadrant so high suspicion for gallbladder etiology, however labs and ultrasound were not highly suggestive of this, so I became more concerned about a vascular issue, and CT angiography of the chest abdomen pelvis was done. Looking at the results of that I think the causative issue today is the 48 mm food or bezoar material in the lower thoracic esophagus, probably from again a tightening Rafaela fundoplication. We will trial some glucagon and Reglan to see if we can move this, if unsuccessful we will call the surgeon. These measures were unsuccessful in resolving her symptoms and I spoke with Dr. Dunn at 4:42 PM who will come in to see the patient and likely take her to the OR. Departure - Departure Disposition: ED Transfer to [facility] Clinical Impression: Esophageal obstruction due to food impaction Abdominal pain Qualifiers: Abdominal location: epigastric Qualified Code(s): R10.13 - Epigastric pain Chest pain Qualifiers: Chest pain type: precordial pain Qualified Code(s): R07.2 - Precordial pain Condition: Fair Discharge Date/Time: 11/06/19 17:51
[2019-11-06 12:58] LABS: BILIRUBIN,URINE NEGATIVE (NEGATIVE); GLUCOSE, URINE (UA) NEGATIVE (NEGATIVE); KETONES,URINE (UA) NEGATIVE (NEGATIVE); LEUKOCYTE ESTERASE, URINE NEGATIVE (NEGATIVE); NITRITE,URINE NEGATIVE (NEGATIVE); OCCULT BLOOD,URINE NEGATIVE (NEGATIVE); PROTEIN,URINE NEGATIVE (NEGATIVE); UROBILINOGEN,URINE 0.2 (NORMAL) E.U./dL (NORMAL)
[2019-11-06 13:00] LABS: CLARITY,URINE CLEAR (CLEAR)
[2019-11-06] MEDS ORDERED: IOVERSOL 320 100 ML VIAL IVP ONE ×2 (14:20→14:51)
--- NOTE | 2019-11-06 14:21 | Ultrasound Report ---
Reason: RUQ pain Procedure Date: 11/06/2019 Accession Number: [id number] / [id number] Procedure: US - Abdomen Limited CPT Code: Final Report FULL RESULT: EXAM: ABDOMEN ULTRASOUND LIMITED, RIGHT UPPER QUADRANT EXAM DATE: 11/06/2019 02:06 PM. CLINICAL HISTORY: Right upper quadrant pain. COMPARISON: None. TECHNIQUE: Real-time scanning was performed with static images obtained. FINDINGS: Examination is limited by poor acoustic windows. Liver: Apparent interval increase in echogenicity of parenchyma is potentially due to the acoustic window.Liver spans at least 16.2 cm. A few simple appearing hepatic cysts are noted the largest of which measures up to 0.9 cm. Main portal vein flow: Hepatopetal. Gallbladder: The neuroscience director na reports a positive sonographic De Santiago's sign. The gallbladder is mildly to moderately distended without sonographic wall thickening. There is no convincing pericholecystic fluid and cholelithiasis or sludge are not seen. Biliary System: CBD measures 5 mm. No intrahepatic or extrahepatic ductal dilatation. Other: None. IMPRESSION: Sonographic evaluation equivocal for acute cholecystitis. RECOMMENDATION: HIDA versus CT. RADIA
--- NOTE | 2019-11-06 15:37 | CT Report ---
Reason: abdominal pain Procedure Date: 11/06/2019 Accession Number: [id number] / [id number] Procedure: CT - ANGIO ABDOMEN/PELVIS W CPT Code: Final Report FULL RESULT: EXAM: CT ANGIOGRAM ABDOMEN AND PELVIS WITH CONTRAST EXAM DATE: 11/06/2019 02:42 PM. CLINICAL HISTORY: Abdominal pain. COMPARISONS: ABDOMEN/PELVIS W/ 04/13/2017 3:02 PM. TECHNIQUE: Routine helical CT angiogram imaging was performed through the abdomen and pelvis in the arterial phase. IV contrast: OPTI 320 100ML. Enteric contrast: No. Reconstructions: Coronal, sagittal, and 3D MIP reconstructions. In accordance with CT protocol optimization, one or more of the following dose reduction techniques were utilized for this exam: automated exposure control, adjustment of mA and/or KV based on patient size, or use of iterative reconstructive technique. FINDINGS: Vasculature: Normal. No aneurysm, dissection, or significant atherosclerotic disease of the abdominal aorta and iliac arteries. The visualized mesenteric and solid organ vascular structures are also within normal limits. Lung Bases: Clear lung bases. Small hiatal hernia. Abdominal Solid Organs: Small cysts or hemangiomata in the liver. Unremarkable gallbladder. No ductal dilation. Unremarkable pancreas. Markedly heterogeneous spleen with irregular hyperattenuation defects, normal variant related to timing of injection versus infarctions. No perisplenic fluid. Unremarkable and renal glands. 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 Peritoneal Cavity: Normal. No free fluid, free air, or acute inflammatory process. Pelvic Organs: Unremarkable urinary bladder. Absent uterus. Bones: No significant abnormality. Other: None. IMPRESSION: 1. Negative for aortic aneurysm or dissection. 2. Markedly heterogeneous splenic enhancement; in the absence of symptoms referable to the spleen, probably normal variation. 3. 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 RADIA
--- NOTE | 2019-11-06 15:42 | CT Report ---
Reason: chest pain Procedure Date: 11/06/2019 Accession Number: [id number] / [id number] Procedure: CT - ANGIO CHEST W/WO CPT Code: Final Report FULL RESULT: EXAM: CT ANGIOGRAM CHEST EXAM DATE: 11/06/2019 02:42 PM. CLINICAL HISTORY: Chest pain. COMPARISON: CHEST ANGIO 04/28/2019 1:19 PM. TECHNIQUE: Routine helical imaging was performed through the chest in the pulmonary arterial phase. IV Contrast: OPTI 320 100ML. Reconstructions: Coronal 3-D MIP reconstructions.Sagittal and coronal. In accordance with CT protocol optimization, one or more of the following dose reduction techniques were utilized for this exam: automated exposure control, adjustment of mA and/or KV based on patient size, or use of iterative reconstructive technique. FINDINGS: Pulmonary Arteries: Diagnostic quality: Adequate through the segmental arteries. Negative for acute pulmonary embolism. The main pulmonary artery is normal in size. Lungs/Pleura: There is a calcified granuloma in the right lower lobe. No pulmonary consolidation or findings of acute pneumonia. The trachea and central airways are normal in caliber. Negative for pleural effusion and pneumothorax. Mediastinum: There is mild atherosclerotic calcified plaque of the thoracic aorta. No aneurysm or dissection. No intramural hemorrhage. The heart size is normal. There is no pericardial effusion. There is a small sliding hiatal hernia which contains food material. The food material measures 36 x 48 x 43 mm. There are findings of previous gastric fundoplication. Thoracic Aorta: Unremarkable. Upper Abdomen: Normal in caliber. There is mild to moderate aortic annular calcification. There is moderate coronary artery calcification. Other: None. IMPRESSION: 1. Negative for acute pulmonary embolism. 2. Retained food material or bezoar in the lower thoracic esophagus measuring 48 mm in diameter, located above a gastric fundoplication. 3. Clear lungs. RADIA
[2019-11-06] MEDS ORDERED: GLUCAGON 1 MG/ML VIAL IVP STA (15:50)
[2019-11-06] MEDS ORDERED: METOCLOPRAMIDE 10 MG/2 ML VIAL IVP STA (15:50)
--- NOTE | 2019-11-06 17:10 | PHARMACY PROGRESS NOTE ---
- Best Possible Medication History Admit Date and Time: Patient still in ED Processed by: Pharmacy Medication History completed: Yes Secondary Source(s): Physician records, Previous admit records As the person ultimately responsible for medication therapy, providers are able to order a medication from an existing home medication list in [facility] via the "Reconcile Routine" prior to Confirmation of that medication by print support specialist. Such practice is discouraged except when the physician, in their clinical judgment, deems that a medical need exists for a medication without regard to previous use.
--- NOTE | 2019-11-06 17:27 | ANESTHESIA ---
Pre-Anesthesia VS, & Labs - Diagnosis Foreign body at esophagus - Procedure EGD, Foreign body removal Vital Signs: Temp Pulse Resp BP Pulse Ox 36.6 C 78 16 141/79 H 95 11/06/19 11:51 11/06/19 16:57 11/06/19 16:57 11/06/19 16:57 11/06/19 16:57 Height 5 ft 6 in Weight (kg) 77.474 kg Body Mass Index 27.6 - NPO Last Food Intake: 6h - Is Patient ?: No - Lab Results Current Lab Results: Laboratory Tests 11/06/19 12:05: Sodium 140, Potassium 4.2, Chloride 103, Carbon Dioxide 28, Anion Gap 9.0, BUN 22 H, Creatinine 0.8, Estimated GFR (MDRD) 69 L, Glucose 96, Calcium 9.7, Total Bilirubin 0.6, AST 23, ALT 21, Alkaline Phosphatase 75, Total Protein 7.5, Albumin 4.5, Globulin 3.0, Albumin/Globulin Ratio 1.5, Lipase 45 11/06/19 12:05: WBC 4.9, RBC 5.13, Hgb 15.9, Hct 48.5 H, MCV 94.5, MCH 31.0, MCHC 32.8, RDW 13.6, Plt Count 223, MPV 10.8, Neut # (Auto) 2.6, Lymph # (Auto) 1.7, [place] # (Auto) 0.4, Eos # (Auto) 0.2, Baso # (Auto) 0.0, Absolute Nucleated RBC 0.00, Nucleated RBC % 0.0 Lab results reviewed: No Fish Bones: 11/06/19 12:05 11/06/19 12:05 Home Medications and Allergies Home Medications: Ambulatory Orders Ascorbic Acid [Vitamin C] 1,000 mg PO DAILY 11/06/19 Cyclobenzaprine [Flexeril] 10 mg PO TID PRN 11/06/19 Multivitamin [Theragran] 1 each PO DAILY 11/06/19 [place]-3/Dha/Epa/Fish Oil [Fish Oil 1,000 mg Softgel] 1,000 mg PO BID 11/06/19 Simvastatin [Zocor] 40 mg PO QPM 11/06/19 Levothyroxine Sodium [Synthroid] 100 mcg PO QDAC 04/28/13 Ascorbic Acid [Vitamin C] 1,000 mg PO DAILY 11/06/19 Cyclobenzaprine [Flexeril] 10 mg PO TID PRN 11/06/19 Multivitamin [Theragran] 1 each PO DAILY 11/06/19 [place]-3/Dha/Epa/Fish Oil [Fish Oil 1,000 mg Softgel] 1,000 mg PO BID 11/06/19 Simvastatin [Zocor] 40 mg PO QPM 11/06/19 Allergies/Adverse Reactions: Allergies Allergy/AdvReac Type Severity Reaction Status Date / Time Penicillins Allergy Severe Respiratory Verified 11/06/19 11:58 oxycodone HCl * Allergy Mild Rash Verified 11/06/19 11:58 [From Percocet] Sulfa (Sulfonamide Allergy Unknown Verified 11/06/19 11:58 Antibiotics) epinephrine AdvReac Severe hypoglycemi Verified 11/06/19 11:58 a Anes History & Medical History - Anesthetic History Anesthesia Complications: reports: No previous complications Family history of Anesthesia Complications: Denies Family history of Malignant Hyperthermia: Denies - Medical History Cardiovascular: reports: High cholesterol Pulmonary: reports: None Gastrointestinal: reports: GERD Urinary: reports: Kidney stones Musculoskeletal: reports: None Endocrine/Autoimmune: reports: None Smoking Status: Never smoker - Surgical History General: EGD, Colonoscopy Gynecologic: Hysterectomy Orthopedic: Rotator cuff repair, Carpal Tunnel surgery Exam General: Alert, Oriented x3, Cooperative Dental: WNL Mouth Openin Fingerbreadth Neck Mobility: Normal Mallampati classification: II Thyromental Distance: 4-6 cm Respiratory: Lungs clear, Normal breath sounds Cardiovascular: Regular rate Neurological: Normal speech Mental/Cognitive Status: Alert/Oriented X3, Normal for patient Cognitive Status: Within normal limits Plan Anesthesia Type: General Consent for Procedure(s) Verified and Reviewed: Yes Code Status: Attempt Resuscitation ASA classification: 2-Mild systemic disease Is this case an emergency?: Yes
[2019-11-06] MEDS ORDERED: fentaNYL 100 MCG/2 ML VIAL IVP ONE (17:35)
[2019-11-06] MEDS ORDERED: SUCCINYLCHOLINE 200 MG/10 ML VIAL IVP ONE (17:35)
[2019-11-06] MEDS ORDERED: PROPOFOL 200 MG/20 ML VIAL IVP ONE (17:35)
[2019-11-06] MEDS ORDERED: LIDOCAINE-MPF 2% 5 ML VIAL IM ONE (17:35)
[2019-11-06] MEDS ORDERED: MIDAZOLAM 2 MG/2 ML VIAL IVP ONE (17:35)
[2019-11-06] MEDS ORDERED: LACTATED RINGERS 1,000 ML IV ONE ×3 (17:35→20:33)
[2019-11-06] MEDS ORDERED: DEXAMETHASONE 4 MG/ML VIAL IVP ONE (17:35)
[2019-11-06] MEDS ORDERED: ONDANSETRON 4 MG/2 ML VIAL IVP ONE (17:35)
--- NOTE | 2019-11-06 17:38 | HISTORY & PHYSICAL EXAMINATION ---
HPI - Admitted From Admitted from: ED - History Obtained From History obtained from: Patient Exam limitations: No limitations - History of Present Illness Severity at the worst: reports: Severe Pain Quality: reports: Sharp, Aching, Throbbing Context-Pain started w/: reports: Eating Timing: reports: Abrupt onset Duration: reports: Hours: (8) Improved with: reports: Nothing Worsened by: reports: Eating Associated symptoms: reports: Nausea, Vomiting PMH/PSH - Past Medical History Cardiovascular: positive: High cholesterol Respiratory: positive: None Endocrine/Autoimmune: positive: None GI: positive: GERD : positive: Kidney stones HEENT: positive: None Psych: positive: None Musculoskeletal: positive: None MRSA Hx?: No - Past Surgical History General: positive: EGD, Colonoscopy Ortho: positive: Rotator cuff repair, Carpal Tunnel surgery /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 Social & Family Hx - Social History Does the pt smoke?: No Smoking Status: Never smoker Does the pt drink ETOH?: Yes Does the pt have substance abuse?: No - POLST Patient has POLST: No Meds/Allgy - Home Medications Home Medications: Ambulatory Orders Medication Instructions Recorded Confirmed Levothyroxine Sodium [Synthroid] 100 mcg PO QDAC 04/28/13 11/06/19 Ascorbic Acid [Vitamin C] 1,000 mg PO DAILY 11/06/19 11/06/19 Cyclobenzaprine [Flexeril] 10 mg PO TID PRN 11/06/19 11/06/19 Multivitamin [Theragran] 1 each PO DAILY 11/06/19 11/06/19 [place]-3/Dha/Epa/Fish Oil [Fish Oil 1,000 mg PO BID 11/06/19 11/06/19 1,000 mg Softgel] Simvastatin [Zocor] 40 mg PO QPM 11/06/19 11/06/19 - Allergies Allergies/Adverse Reactions: Allergies Allergy/AdvReac Type Severity Reaction Status Date / Time Penicillins Allergy Severe Respiratory Verified 11/06/19 11:58 oxycodone HCl * Allergy Mild Rash Verified 11/06/19 11:58 [From Percocet] Sulfa (Sulfonamide Allergy Unknown Verified 11/06/19 11:58 Antibiotics) epinephrine AdvReac Severe hypoglycemi Verified 11/06/19 11:58 a Review of Systems - Constitutional Constitutional: reports: Fatigue - Eyes Eyes: denies: Pain, Irritation - Ears, Nose & Throat Ears, Nose & Throat: denies: Tinnitus, Vertigo - Cardiovascular Cariovascular: reports: Chest pain. denies: Lightheadedness, Syncope, Orthopnea - Gastrointestinal Gastrointestinal: reports: Abdominal pain - All Other Systems All Other Systems: reports: Reviewed and negative Exam - Vital Signs Reviewed Vital Signs: Yes Vital Signs: Vital Signs x48h Temp Pulse Resp BP Pulse Ox 11/06/19 16:57 78 16 141/79 H 95 11/06/19 14:11 63 16 120/57 L 92 11/06/19 13:00 63 18 146/89 H 98 11/06/19 12:13 60 18 136/48 H 96 11/06/19 11:51 36.6 C 64 16 147/76 H 98 - Physical Exam General Appearance: positive: Alert, Mild distress Eyes Bilateral: positive: Normal inspection, PERRL, EOMI ENT: positive: ENT inspection nml, Pharynx nml, No signs of dehydration Neck: positive: Nml inspection, Thyroid nml, No JVD, Trachea midline Respiratory: positive: Chest non-tender, No respiratory distress, Breath sounds nml Cardiovascular: positive: Regular rate & rhythm Peripheral Pulses: positive: 0 Abdomen: positive: Non-tender, Nml bowel sounds Back: negative: CVA tenderness (R), CVA tenderness (L) Skin: positive: Color nml Extremities: positive: Non-tender Neurologic/Psychiatric: positive: Oriented x3 Results - Lab Results Fish Bones: 11/06/19 12:05 11/06/19 12:05 Other Lab Results: Lab Results x24hrs 11/06/19 11/06/19 11/06/19 Range/Units 12:05 12:05 12:00 WBC 4.9 (4.8-10.8) x10^3/uL RBC 5.13 (4.20-5.40) 10^6/uL Hgb 15.9 (12.0-16.0) g/dL Hct 48.5 H (37.0-47.0) % MCV 94.5 (81.0-99.0) fL MCH 31.0 (27.0-31.0) pg MCHC 32.8 (32.0-36.0) g/dL RDW 13.6 (12.0-15.0) % Plt Count 223 (130-450) 10^3/uL MPV 10.8 (7.9-10.8) fL Neut # (Auto) 2.6 (1.5-6.6) 10^3/uL Lymph # (Auto) 1.7 (1.5-3.5) 10^3/uL [place] # (Auto) 0.4 (0.0-1.0) 10^3/uL Eos # (Auto) 0.2 (0.0-0.7) 10^3/uL Baso # (Auto) 0.0 (0.0-0.1) 10^3/uL Absolute Nucleated RBC 0.00 x10^3/uL Nucleated RBC % 0.0 /100WBC Sodium 140 (135-145) mmol/L Potassium 4.2 (3.5-5.0) mmol/L Chloride 103 (101-111) mmol/L Carbon Dioxide 28 (21-32) mmol/L Anion Gap 9.0 (6-13) BUN 22 H (6-20) mg/dL Creatinine 0.8 (0.4-1.0) mg/dL Estimated GFR (MDRD) 69 L (>89) Glucose 96 (70-100) mg/dL Calcium 9.7 (8.5-10.3) mg/dL Total Bilirubin 0.6 (0.2-1.0) mg/dL AST 23 (10-42) IU/L ALT 21 (10-60) IU/L Alkaline Phosphatase 75 (42-121) IU/L Total Protein 7.5 (6.7-8.2) g/dL Albumin 4.5 (3.2-5.5) g/dL Globulin 3.0 (2.1-4.2) g/dL Albumin/Globulin Ratio 1.5 (1.0-2.2) Lipase 45 (22-51) U/L Urine Color LT. YELLOW Urine Clarity CLEAR (CLEAR) Urine pH 6.0 (5.0-7.5) PH Ur Specific [place] <=1.005 (1.002-1.030) Urine Protein NEGATIVE (NEGATIVE) mg/dL Urine Glucose (UA) NEGATIVE (NEGATIVE) mg/dL Urine Ketones NEGATIVE (NEGATIVE) mg/dL Urine Occult Blood NEGATIVE (NEGATIVE) Urine Nitrite NEGATIVE (NEGATIVE) Urine Bilirubin NEGATIVE (NEGATIVE) Urine Urobilinogen 0.2 (NORMAL) (NORMAL) E.U./dL Ur Leukocyte Esterase NEGATIVE (NEGATIVE) Ur Microscopic Review NOT INDICATED Urine Culture Comments NOT INDICATED - Diagnostic Imaging Results Diagnostic Imaging Results Comments: CT reveals impacted food bolus at the GE junction Impression/Plan - Problem List Problem List: Impacted food bolus : we have discussed the risks and benefits of EGD with removal of impacted food bolus. The patient has expressed and understanding of the risks and a desire to complete the procedure.
[2019-11-06] MEDS ORDERED: ONDANSETRON 4 MG/2 ML VIAL IVP PRN (20:09)
[2019-11-06 21:58] VITALS: BP 130/66
== END 2019-11-06 22:25 | disposition home or self-care (01) ==
LOC: EDUNIT# → ED 11:50 → SDS 17:39 → MS2 20:35 → SDS 22:25
PROVIDERS: ATTEND Surgery
PROC: 0DC38ZZ Extirpation of Matter from Lower Esophagus, Via Natural or Artificial Opening Endoscopic (ICD-10-PCS; principal; 2019-11-06 17:30)
DX: T18.128A Food in esophagus causing other injury, initial encounter (principal); K20.9 Esophagitis, unspecified; K22.8 Other specified diseases of esophagus; K82.8 Other specified diseases of gallbladder; Z87.19 Personal history of other diseases of the digestive system
CPT/HCPCS: 36415; 43247; 71275; 74174; 76705; 80053; 81003; 83690; 85025; 93005; 96374; 96375; 99285; J0330; J1170; J2765; J7120; Q9967; 81001; 87086

== ENCOUNTER 2020-01-01 08:11 | Day surgery (SDC) | payer MEDICARE, OTHER ==
[2020-01-01] MEDS ORDERED: LACTATED RINGERS 1,000 ML IV ONE (08:16)
[2020-01-01] MEDS ORDERED: LIDO GARGLE 30 ML BOTTLE ONE (09:40)
[2020-01-01] MEDS ORDERED: fentaNYL 100 MCG/2 ML VIAL IVP ONE (10:15)
[2020-01-01] MEDS ORDERED: MIDAZOLAM 2 MG/2 ML VIAL IVP ONE (10:15)
[2020-01-01] MEDS ORDERED: LIDO GARGLE 30 ML BOTTLE PO ONE (10:19)
[2020-01-01 11:09] VITALS: BP 115/76
== END 2020-01-01 08:12 | disposition home or self-care (01) ==
LOC: SDS 08:11
PROVIDERS: ATTEND Surgery
PROC: 0DB98ZX Excision of Duodenum, Via Natural or Artificial Opening Endoscopic, Diagnostic (ICD-10-PCS; 2020-01-01)
PROC: 0DB78ZX Excision of Stomach, Pylorus, Via Natural or Artificial Opening Endoscopic, Diagnostic (ICD-10-PCS; 2020-01-01)
PROC: 0DB48ZX Excision of Esophagogastric Junction, Via Natural or Artificial Opening Endoscopic, Diagnostic (ICD-10-PCS; principal; 2020-01-01 09:30)
DX: K22.70 Barrett's esophagus without dysplasia (principal); K21.9 Gastro-esophageal reflux disease without esophagitis; J38.2 Nodules of vocal cords; E78.5 Hyperlipidemia, unspecified; R01.1 Cardiac murmur, unspecified; D68.51 Activated protein C resistance; I73.00 Raynaud's syndrome without gangrene; M79.7 Fibromyalgia; J45.909 Unspecified asthma, uncomplicated; F43.10 Post-traumatic stress disorder, unspecified
CPT/HCPCS: 43239; 87081; A9270; J7120

== ENCOUNTER 2020-03-19 13:00 | Outpatient (CLI) | payer MEDICARE, OTHER ==
[2020-03-19 17:48] LABS: HGB - HEMOGLOBIN 15.2 g/dL (12.0-16.0); MEAN CORPUSCULAR HEMOGLOBIN 31.4 pg (27.0-31.0); MEAN CORPUSCULAR HGB CONC 33.3 g/dL (32.0-36.0); MEAN CORPUSCULAR VOLUME 94.4 fL (81.0-99.0); MEAN PLATELET VOLUME 10.8 fL (7.9-10.8); RED BLOOD COUNT 4.84 10^6/uL (4.20-5.40); RED CELL DISTRIBUTION WIDTH 13.4 % (12.0-15.0); WHITE BLOOD COUNT 5.5 x10^3/uL (4.8-10.8)
[2020-03-19 17:55] LABS: ALBUMIN 4.2 g/dL (3.2-5.5); ALBUMIN/GLOBULIN RATIO 1.6 (1.0-2.2); BILIRUBIN,TOTAL 0.7 mg/dL (0.2-1.0); CALCIUM 9.5 mg/dL (8.5-10.3); CREATININE 0.7 mg/dL (0.4-1.0); MAGNESIUM 2.3 mg/dL (1.7-2.8); TOTAL PROTEIN 6.9 g/dL (6.7-8.2)
--- NOTE | 2020-03-20 03:26 | XRAY Report ---
Reason: PALPITATIONS Procedure Date: 03/19/2020 Accession Number: [id number] / [id number] Procedure: WCP - Chest 2 View X-Ray CPT Code: 03379 Final Report FULL RESULT: EXAM: CHEST RADIOGRAPHY EXAM DATE: 03/19/2020 02:12 PM. CLINICAL HISTORY: PALPITATIONS. COMPARISON: CHEST 2 VIEW 11/15/2017 7:26 AM CHEST ANGIO 11/06/2019 2:40 PM CHEST W/O 07/31/2019 12:49 PM. TECHNIQUE: 2 views. FINDINGS: Lungs/Pleura: No focal opacities evident. Subtle right lower lung granuloma corresponding to CT findings. No pleural effusion. No pneumothorax. Normal volumes. Mediastinum: Heart and mediastinal contours are unremarkable. Other: Air-filled bowel loops in visualized upper abdomen. IMPRESSION: Stable CXR. No acute cardiopulmonary findings. [facility]
== END 2020-03-19 23:59 | disposition home or self-care (01) ==
LOC: DI.WCP 13:00
PROVIDERS: ATTEND Family Medicine
DX: R00.2 Palpitations (principal); R06.09 Other forms of dyspnea; Z79.899 Other long term (current) drug therapy
CPT/HCPCS: 36415; 71046; 80053; 83735; 83880; 84443; 85027

== ENCOUNTER 2020-03-25 13:00 | Outpatient (CLI) | payer MEDICARE, OTHER ==
--- NOTE | 2020-03-25 15:51 | CT Report ---
Reason: PULMONARY NODULE RT LOWER LOBE Procedure Date: 03/25/2020 Accession Number: [id number] / [id number] Procedure: CT - CHEST WO CPT Code: Final Report FULL RESULT: PROCEDURE: CHEST WO INDICATIONS: PULMONARY NODULE RT LOWER LOBE TECHNIQUE: Noncontrast 5 mm thick sections acquired from the pulmonary apices to the posterior costophrenic angles. 7 mm thick coronal and sagittal MIP reformats were then acquired. For radiation dose reduction, the following was used: automated exposure control, adjustment of mA and/or kV according to patient size. COMPARISON: CT chest angiogram 11/06/2019, CT chest 07/31/2019, CT chest angiogram 04/28/2019 FINDINGS: Image quality: Excellent. Lungs and pleura: Within the right lower lobe, there is a peripheral nodule measuring up to 1.1 cm with spiculated margins. There is an eccentric focus of internal calcification redemonstrated. The finding is stable in size compared to the prior studies dating back to 04/28/2019. Within the left lingula, there is a small peripheral nodule measuring up to approximately 0.2 cm on series 4 image 213 which appears unchanged compared to the prior studies. No pleural effusions or pneumothorax. Central and peripheral airways are patent and normal in caliber. Mediastinum: Heart size is normal. No pericardial effusion. There is coronary arterial vascular calcification. No mediastinal or hilar adenopathy by size criteria. There are calcified mediastinal and hilar lymph nodes consistent with old granulomatous disease. Thoracic aorta and central pulmonary arteries are normal in size. Esophagus is normal in caliber. There are postsurgical changes at the gastroesophageal junction. Bones and chest wall: No suspicious bony lesions. No vertebral body compression fractures. No axillary or supraclavicular adenopathy by size criteria. The thyroid is normal in size. Abdomen: Visualized upper abdomen demonstrates a few small hypodensities in the liver which are too small to characterize but appears similar to the prior studies and likely represent cysts. IMPRESSION: 1. Irregular right lower lobe pulmonary nodule with eccentric internal calcification appears unchanged compared to the prior studies and likely represents sequelae of old granulomatous disease. However, given the asymmetric appearance of the internal calcification, a follow-up CT is recommended in approximately 12 months to demonstrate two-year stability. 2. Small 0.2 cm nodule also demonstrated in the left lingula. Recommend attention on follow-up. 3. Calcified mediastinal and hilar lymph nodes consistent with old granulomatous disease. Reviewed by: Usman Boykin MD on 03/25/2020 3:50 PM PDT Approved by: Usman Boykin MD on 03/25/2020 3:50 PM PDT Station ID: [id number]
== END 2020-03-25 13:01 | disposition home or self-care (01) ==
LOC: DI 13:00
PROVIDERS: ATTEND Family Medicine
DX: R91.8 Other nonspecific abnormal finding of lung field (principal)
CPT/HCPCS: 71250

== ENCOUNTER 2020-05-10 06:25 | Day surgery (SDC) | payer MEDICARE, OTHER ==
[2020-05-10] MEDS ORDERED: LACTATED RINGERS 1,000 ML IV ONE (06:32)
[2020-05-10] MEDS ORDERED: LIDO GARGLE 30 ML BOTTLE ONE (06:55)
[2020-05-10] MEDS ORDERED: fentaNYL 100 MCG/2 ML VIAL IVP ONE (08:06)
[2020-05-10] MEDS ORDERED: MIDAZOLAM 2 MG/2 ML VIAL IVP ONE (08:06)
[2020-05-10] MEDS ORDERED: LIDO GARGLE 30 ML BOTTLE PO ONE (08:10)
[2020-05-10] MEDS ORDERED: BENZOCAINE/TETRACAINE/BUTAMBEN 20 GM TOP ONE (08:10)
--- NOTE | 2020-05-10 08:42 | OPERATIVE REPORT ---
Operative Report - General Planned Procedure: EGD with biopsies and possible dilation Pre-Op Diagnosis: Dysphagia Procedure Performed: EGD with biopsies Post Op Diagnosis: Same - Procedure Note Primary Surgeon: Shaun Secondary Surgeon: Rigoberto Anesthesia Provider: Cecil Anesthesia Technique: Moderate sedation (Versed 3 mg Fentanyl 100 mcg) Pathology: All cold forceps biopsies 1. Gastric antrum 2. Distal esophagus 3. Mid esophagus Estimated Blood Loss (mL): 1 Findings: Esophageal spasm is noted Small hiatal hernia Irregular mucosa border at the GE junction Grossly normal esophageal mucosa Complications: None apparent - Other Other Information/Narrative: After obtaining informed consent, the patient is brought to the GI suite and placed in the left lateral decubitus position on the examination table. Following anesthetization of the posterior oropharynx and IV sedation with Versed and fentanyl, a timeout was held per scope protocol. The gastroscope was then gently passed into the patient's posterior oropharynx through a bite block. The esophagus was easily cannulated and the scope passed through the GE junction and into the gastric cavity. There were no obvious abnormalities of the stomach. Biopsies were taken with cold forceps for pathology. The scope was then withdrawn and the GE junction examined the patient does have a small hiatal hernia which was noted on recent EGD. The mucosal junction at the gastroesophageal connection is irregular but without obvious erythema. The scope was then pulled back into the esophagus. Spasm was noted of the esophagus as well as extended periods of dilation. Multiple biopsies were taken of the distal esophagus and then the mid esophagus all with cold forceps. The stomach was then aspirated free of all air and decompressed. The scope was then gently removed and the procedure completed.All sponge, needle, and instrument counts were correct at the conclusion of the case. The patient was returned to the out patient surgery center in good condition.
[2020-05-10 09:12] VITALS: BP 137/81
== END 2020-05-10 06:26 | disposition home or self-care (01) ==
LOC: SDS 06:25
PROVIDERS: ATTEND Surgery
PROC: 0DB68ZX Excision of Stomach, Via Natural or Artificial Opening Endoscopic, Diagnostic (ICD-10-PCS; 2020-05-10)
PROC: 0DB28ZX Excision of Middle Esophagus, Via Natural or Artificial Opening Endoscopic, Diagnostic (ICD-10-PCS; 2020-05-10)
PROC: 0DB38ZX Excision of Lower Esophagus, Via Natural or Artificial Opening Endoscopic, Diagnostic (ICD-10-PCS; principal; 2020-05-10 07:30)
DX: R13.10 Dysphagia, unspecified (principal); K29.50 Unspecified chronic gastritis without bleeding; K20.9 Esophagitis, unspecified; K44.9 Diaphragmatic hernia without obstruction or gangrene; Z87.891 Personal history of nicotine dependence
CPT/HCPCS: 43239; A9270; J7120

== ENCOUNTER 2020-08-02 18:40 | Emergency (ER) | payer MEDICARE, OTHER ==
--- NOTE | 2020-08-02 19:32 | ED Physician Documentation ---
History of Present Illness - Stated complaint Stated Complaint: THROAT PX/COUGH - Chief complaint Chief Complaint: General - History obtained from History obtained from: Patient - Additonal information Additional information: Sick for 2 weeks after inhaling mold outside her house while cleaning. Nonproductive cough, body aches. Sore throat. No fevers. Her is also sick. Review of Systems Constitutional: denies: Fever, Chills Respiratory: reports: Cough, Wheezing. 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, Other - Present Medications Home Medications: Ambulatory Orders Medication Instructions Recorded Confirmed Levothyroxine Sodium [Synthroid] 100 mcg PO QDAC 04/28/13 05/10/20 Multivitamin [Theragran] 1 each PO DAILY 11/06/19 05/10/20 [place]-3/Dha/Epa/Fish Oil [Fish Oil 1,000 mg PO BID 11/06/19 05/10/20 1,000 mg Softgel] Simvastatin [Zocor] 40 mg PO QPM 11/06/19 05/10/20 Azithromycin [Zithromax] PRN 05/10/20 Albuterol Sulf [Ventolin Hfa 1 - 2 puffs INH Q4HR PRN #1 inhaler 08/02/20 Inhaler] - Allergies Allergies/Adverse Reactions: Allergies Allergy/AdvReac Type Severity Reaction Status Date / Time epinephrine Allergy Severe hypoglycemi Verified 08/02/20 19:13 a Penicillins Allergy Severe Respiratory Verified 08/02/20 19:13 oxycodone HCl * Allergy Mild Rash Verified 08/02/20 19:13 [From Percocet] Sulfa (Sulfonamide Allergy Unknown Verified 08/02/20 19:13 Antibiotics) adhesive tape AdvReac peels skin Verified 08/02/20 19:13 off - Social History Does the pt smoke?: No Smoking Status: Never smoker Does the pt drink ETOH?: Yes Does the pt have substance abuse?: No - Immunizations Immunizations are current?: Yes - POLST Patient has POLST: No PD ED PE NORMAL - Vitals Vital signs reviewed: Yes - General General: Alert and oriented X 3, No acute distress - Cardiac Cardiac: RRR, No murmur - Respiratory Respiratory: No respiratory distress, Clear bilaterally - Abdomen Abdomen: Non tender - Derm Derm: No rash - Neuro Neuro: Alert and oriented X 3, Normal speech Results - Vitals Vitals: Vital Signs - 24 hr 08/02/20 18:47 Temperature 36.7 C Heart Rate 86 Respiratory 18 Rate Blood Pressure 135/71 H O2 Saturation 95 Oxygen O2 Source Room air PD MEDICAL DECISION MAKING - ED course ED course: 79-year-old woman viral syndrome versus allergic bronchitis. Will treat with albuterol pending Covid result. Departure - Departure Disposition: 01 Home, Self Care Clinical Impression: Allergic bronchitis Qualifiers: Asthma severity: unspecified severity Asthma complication type: with acute exacerbation Qualified Code(s): J45.901 - Unspecified asthma with (acute) exacerbation Condition: Good Record reviewed to determine appropriate education?: Yes Instructions: ED Bronchitis Asthmatic Prescriptions: Albuterol Sulf [Ventolin Hfa Inhaler] 1 - 2 puffs INH Q4HR PRN #1 inhaler PRN Reason: Shortness Of Air/Wheezing Comments: Coronavirus testing is pending, we will call if positive. Return if worsening or significant shortness of breath. You need to self quarantine until the result is done and known to be negative. The fastest way to get confirmation of a negative result is to log into the hospital website at [email or web address] and go to the "my [employer]" tab and sign up for the patient portal.
[2020-08-02 21:26] VITALS: BP 146/83
== END 2020-08-02 21:45 | disposition home or self-care (01) ==
LOC: ED 18:40
DX: J45.901 Unspecified asthma with (acute) exacerbation (principal); Z77.120 Contact with and (suspected) exposure to mold (toxic); Z20.828 Contact with and (suspected) exposure to other viral communicable diseases
CPT/HCPCS: 99283; U0004

== ENCOUNTER 2020-08-06 09:46 | Outpatient (CLI) | payer MEDICARE, OTHER | END 2020-08-06 09:47 | disposition critical access hospital (66) | LOC: EMS 09:46 | PROVIDERS: ATTEND Surgery | DX: R42 Dizziness and giddiness (principal); R11.0 Nausea | CPT/HCPCS: A0425; A0429 ==

== ENCOUNTER 2020-08-06 10:02 | Emergency (ER) | payer MEDICARE, OTHER ==
--- NOTE | 2020-08-06 10:58 | ED Physician Documentation ---
PD HPI HEENT - Stated complaint Stated Complaint: DIZZINESS/NAUSEA - Chief complaint Chief Complaint: Neuro - History obtained from History obtained from: Patient - History of Present Illness Timing - onset: Last night Timing - details: Abrupt onset (noted some dizziness with head movement last night, which was not noticable during the night, but very symptomatic upon awakening and moving today. Better with rest, worse with head movement. Associated nausea with some vomiting. No headache, but has sinus pressure.), Still present Location: Right ear (feeling fullness right ear with decreased hearing.), Sinuses (fullness and pressure in frontal area.) Worsens: Position, Other (head movement) Associated symptoms: Congestion, Headache (frontal sinus area.). No: Fever, Facial swelling Similar symptoms before: Has not had sx before Recently seen: Not recently seen Review of Systems Constitutional: denies: Fever, Chills Ears: reports: Loss of hearing (diminished on right). denies: Ear pain, Drainage/discharge Nose: reports: Congestion, Sinus pressure / pain. denies: Rhinorrhea / runny nose Musculoskeletal: denies: Neck pain, Back pain Neurologic: reports: Generalized weakness. 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, Other - Present Medications Home Medications: Ambulatory Orders Medication Instructions Recorded Confirmed Levothyroxine Sodium [Synthroid] 100 mcg PO QDAC 04/28/13 05/10/20 Multivitamin [Theragran] 1 each PO DAILY 11/06/19 05/10/20 [place]-3/Dha/Epa/Fish Oil [Fish Oil 1,000 mg PO BID 11/06/19 05/10/20 1,000 mg Softgel] Simvastatin [Zocor] 40 mg PO QPM 11/06/19 05/10/20 Azithromycin [Zithromax] PRN 05/10/20 Albuterol Sulf [Ventolin Hfa 1 - 2 puffs INH Q4HR PRN #1 inhaler 08/02/20 Inhaler] Cetirizine [ZyrTEC] 10 mg PO DAILY #15 tablet 08/06/20 Meclizine [Antivert] 25 mg PO Q6H PRN #30 tablet 08/06/20 dexAMETHasone [Decadron] 4 mg PO DAILY #5 tablet 08/06/20 diazePAM [Diazepam] 5 mg PO TID PRN #15 tablet 08/06/20 - Allergies Allergies/Adverse Reactions: Allergies Allergy/AdvReac Type Severity Reaction Status Date / Time epinephrine Allergy Severe hypoglycemi Verified 08/06/20 10:10 a Penicillins Allergy Severe Respiratory Verified 08/06/20 10:10 oxycodone HCl * Allergy Mild Rash Verified 08/06/20 10:10 [From Percocet] Sulfa (Sulfonamide Allergy Unknown Verified 08/06/20 10:10 Antibiotics) adhesive tape AdvReac peels skin Verified 08/06/20 10:10 off - Social History Does the pt smoke?: No Smoking Status: Never smoker Does the pt drink ETOH?: Yes Does the pt have substance abuse?: No - Immunizations Immunizations are current?: Yes - POLST Patient has POLST: No PD ED PE NORMAL - Vitals Vital signs reviewed: Yes - General General: Alert and oriented X 3, Well developed/nourished, Other (holding head very still. Appears uncomfortable with head movement, mostly to the right. ) - HEENT HEENT: PERRL, EOMI (with notable nystagmus to the right. Fundi appear normal. ), Ears normal, Moist mucous membranes, Pharynx benign - Neck Neck: Supple, no meningeal sign, No adenopathy - Cardiac Cardiac: RRR, No murmur - Respiratory Respiratory: Clear bilaterally - Abdomen Abdomen: Soft, Non tender - Derm Derm: Normal color, Warm and dry - Extremities Extremities: No tenderness to palpate, Normal ROM s pain, No edema, No calf tenderness / cord - Neuro Neuro: Alert and oriented X 3, client care manager 2-12 intact, No motor deficit, No sensory deficit, Normal speech Eye Opening: Spontaneous Motor: Obeys Commands Verbal: Oriented GCS Score: 15 - Psych Psych: Normal mood, Normal affect Results - Vitals Vitals: Vital Signs - 24 hr 08/06/20 08/06/20 08/06/20 10:10 12:12 14:00 Temperature 36.5 C 36.2 C L Heart Rate 75 73 65 Respiratory 20 14 18 Rate Blood Pressure 165/79 H 140/97 H 126/73 O2 Saturation 100 98 100 Oxygen O2 Source Room air - Labs Labs: Laboratory Tests 08/06/20 08/06/20 11:55 11:55 WBC 6.1 RBC 5.22 Hgb 15.8 Hct 48.2 H MCV 92.3 MCH 30.3 MCHC 32.8 RDW 13.2 Plt Count 226 MPV 9.7 Neut # (Auto) 4.6 Lymph # (Auto) 1.2 L [place] # (Auto) 0.3 Eos # (Auto) 0.1 Baso # (Auto) 0.0 Absolute Nucleated RBC 0.00 Nucleated RBC % 0.0 Sodium 138 Potassium 4.2 Chloride 101 Carbon Dioxide 27 Anion Gap 10.0 BUN 15 Creatinine 0.7 Estimated GFR (MDRD) 81 L Glucose 124 H Calcium 9.5 Magnesium 2.1 Total Bilirubin 0.8 AST 19 ALT 20 Alkaline Phosphatase 82 Total Protein 6.8 Albumin 4.3 Globulin 2.5 Albumin/Globulin Ratio 1.7 Lipase 30 PD MEDICAL DECISION MAKING - ED course Complexity details: reviewed results, re-evaluated patient (feeling much better with meclizine and diazepam. Able to move head side to side with just mild vertigo and no further vomiting. ), considered differential (She has positional vertigo with upper respiratory symptoms of sinus pressure and ear fullness and no other neurologic problem and does have nystagmus on exam. All consistent with peripheral vertigo.), d/w patient Departure - Departure Disposition: 01 Home, Self Care Clinical Impression: Acute severe vertigo Sinusitis, acute Qualifiers: Sinusitis location: unspecified location Recurrence: non-recurrent Qualified Code(s): J01.90 - Acute sinusitis, unspecified Labyrinthitis Qualifiers: Laterality: right Qualified Code(s): H83.01 - Labyrinthitis, right ear Condition: Stable Record reviewed to determine appropriate education?: Yes Instructions: ED Labyrinthitis Follow-Up: Paola Tyler DO [Primary Care Provider] - Prescriptions: Meclizine [Antivert] 25 mg PO Q6H PRN #30 tablet PRN Reason: Vertigo dexAMETHasone [Decadron] 4 mg PO DAILY #5 tablet diazePAM [Diazepam] 5 mg PO TID PRN #15 tablet PRN Reason: Spasms Cetirizine [ZyrTEC] 10 mg PO DAILY #15 tablet Comments: Slow and easy movements to reduce the amount of vertigo. Use Decadron steroid daily for the next 5 days as directed to reduce inflammation through the sinuses and inner ear ear. Also use cetirizine antihistamine to decrease fluid congestion. For the vertigo itself he can use meclizine every 6 hours to 8 hours if needed. Add diazepam if needed for worse vertigo. Recheck if not improving well over the next 2 to 3 days. The 3 of the prescriptions were transmitted to [facility]. I printed out the one for the diazepam. Discharge Date/Time: 08/06/20 14:08
[2020-08-06] MEDS ORDERED: MECLIZINE 12.5 MG TABLET PO STA (11:46)
[2020-08-06] MEDS ORDERED: SODIUM CHLORIDE 0.9% 1,000 ML IV STA (11:46)
[2020-08-06] MEDS ORDERED: diazePAM INJ 5 MG/ML SYRINGE IVP STA (11:46)
[2020-08-06] MEDS ORDERED: DEXAMETHASONE 10 MG/ML VIAL IVP STA (11:46)
[2020-08-06 12:05] LABS: BASOPHILS % (AUTO) 0.3 %; EOSINOPHILS # (AUTO) 0.1 10^3/uL (0.0-0.7); EOSINOPHILS % (AUTO) 0.8 %; HGB - HEMOGLOBIN 15.8 g/dL (12.0-16.0); LYMPHOCYTES # (AUTO) 1.2 10^3/uL (1.5-3.5); LYMPHOCYTES % (AUTO) 19.2 %; MEAN CORPUSCULAR HEMOGLOBIN 30.3 pg (27.0-31.0); MEAN CORPUSCULAR HGB CONC 32.8 g/dL (32.0-36.0); MEAN CORPUSCULAR VOLUME 92.3 fL (81.0-99.0); MEAN PLATELET VOLUME 9.7 fL (7.9-10.8); MONOCYTES # (AUTO) 0.3 10^3/uL (0.0-1.0); MONOCYTES % (AUTO) 4.7 %; NEUTROPHILS # (AUTO) 4.6 10^3/uL (1.5-6.6); NEUTROPHILS % (AUTO) 74.7 %; PLT - PLATELET COUNT 226 10^3/uL (130-450); RED BLOOD COUNT 5.22 10^6/uL (4.20-5.40); RED CELL DISTRIBUTION WIDTH 13.2 % (12.0-15.0); WHITE BLOOD COUNT 6.1 x10^3/uL (4.8-10.8)
[2020-08-06 12:28] LABS: ALBUMIN 4.3 g/dL (3.2-5.5); ALBUMIN/GLOBULIN RATIO 1.7 (1.0-2.2); BILIRUBIN,TOTAL 0.8 mg/dL (0.2-1.0); CALCIUM 9.5 mg/dL (8.5-10.3); CREATININE 0.7 mg/dL (0.4-1.0); MAGNESIUM 2.1 mg/dL (1.7-2.8); TOTAL PROTEIN 6.8 g/dL (6.7-8.2)
[2020-08-06] MEDS ORDERED: FLUCONAZOLE 100 MG TABLET PO STA (13:49)
[2020-08-06 14:08] VITALS: BP 126/73
== END 2020-08-06 14:08 | disposition home or self-care (01) ==
LOC: EDUNIT# → ED 10:02
DX: R42 Dizziness and giddiness (principal); J01.90 Acute sinusitis, unspecified; H83.01 Labyrinthitis, right ear
CPT/HCPCS: 36415; 80053; 83690; 83735; 85025; 96374; 99284; A9270

== ENCOUNTER 2020-10-26 08:00 | Outpatient (CLI) | payer MEDICARE, OTHER ==
--- NOTE | 2020-10-26 18:16 | XRAY Report ---
PROCEDURE: Wrist 4 View RT INDICATIONS: RT WRIST AND ELBOW PAIN AFTER GLF TECHNIQUE: 4 views of the wrist were acquired. COMPARISON: None. FINDINGS: Bones: No dislocations. Irregularity at the ulnar styloid. No suspicious bony lesions. Bones appear o steopenic. Scaphoid view: Intact. Soft tissues: No suspicious soft tissue calcifications. IMPRESSION: Irregularity at the ulnar styloid. Suspect remote trauma rather than acute injury. Correlate for poin t tenderness. Bones appear osteopenic. Follow-up radiographs in 10-14 days could be performed if concern for occult fracture. Reviewed by: Ignacio Ovalle MD on 10/26/2020 5:15 PM [facility] Approved by: Ignacio Ovalle MD on 10/26/2020 5:15 PM [facility] Station ID: [id number]
--- NOTE | 2020-10-26 18:18 | XRAY Report ---
PROCEDURE: Elbow 3 View RT INDICATIONS: RT WRIST AND ELBOW PAIN AFTER GLF TECHNIQUE: 3 views of the elbow were acquired. COMPARISON: None FINDINGS: Bones: No fractures or dislocations. No suspicious bony lesions. Soft tissues: No elbow joint effusion. No suspicious soft tissue calcifications. IMPRESSION: No acute osseous abnormality. Reviewed by: Ignacio Ovalle MD on 10/26/2020 5:16 PM [facility] Approved by: Ignacio Ovalle MD on 10/26/2020 5:16 PM [facility] Station ID: [id number]
== END 2020-10-26 23:59 | disposition home or self-care (01) ==
LOC: DI.N 08:00
PROVIDERS: ATTEND Family Medicine
DX: M25.531 Pain in right wrist (principal); M25.521 Pain in right elbow

== ENCOUNTER 2020-11-11 10:00 | Outpatient (CLI) | payer MEDICARE, OTHER ==
--- NOTE | 2020-11-11 10:56 | DEXA Report ---
PROCEDURE: Dexa Spine and/or Hip INDICATIONS: POSTMENOPAUSAL TECHNIQUE: Dual energy x-ray absorptiometry (DXA) was performed on a [employer] System. Regions measur ed are the AP Spine, femoral neck, and if needed forearm. COMPARISON: None. FINDINGS: Lumbar Spine: Bone Mineral Density 1.171 g/cm/cm,T score -0.1, normal density Left Femoral Neck: Bone Mineral Density 0.955 g/cm/cm, T score -0.4, normal density (T score greater or equal to -1.0: NORMAL) (T score from -1.1 to -2.4: OSTEOPENIA) (T score less than or equal to -2.5 to: OSTEOPOROSIS) Impression: NORMAL BONE MINERAL DENSITY. Patients with diagnosis of osteoporosis or osteopenia should have regular bone mineral density assess ment. For those eligible for Medicare, routine testing is allowed once every 2 years. Testing frequ ency can be increased for patients who have rapidly progressing disease or for those who are receivin g medical therapy to restore bone mass. Reviewed by: Arron Salinas MD on 11/11/2020 10:55 AM PST Approved by: Arron Salinas MD on 11/11/2020 10:55 AM PST Station ID: [id number]
--- NOTE | 2020-11-11 17:05 | XRAY Report ---
PROCEDURE: Wrist 2 View RT INDICATIONS: Wrist injury TECHNIQUE: 2 views of the wrist were acquired. COMPARISON: X-ray wrist 10/26/2020, x-ray finger 11/11/2020 FINDINGS: Bones: No fractures or dislocations. No suspicious bony lesions. Mild osteopenia. Soft tissues: No suspicious soft tissue calcifications. IMPRESSION: 1. No visualized fracture or dislocation. If clinical concern and/or pain persists, further evaluatio n with CT or MRI is recommended. Reviewed by: Heidy Meza MD on 11/11/2020 5:04 PM PST Approved by: Heidy Meza MD on 11/11/2020 5:04 PM PST Station ID: [id number]
--- NOTE | 2020-11-11 17:06 | XRAY Report ---
PROCEDURE: Finger(s) RT INDICATIONS: TUMB PAIN TECHNIQUE: AP hand, 3 views of the first finger(s) acquired. COMPARISON: X-ray wrist 11/11/2020, 10/26/2020 FINDINGS: Bones: No fractures or dislocations. No suspicious bony lesions. Scattered IP degenerative changes are noted. Mild osteopenia. Soft tissues: No suspicious soft tissue calcifications. IMPRESSION: IP degenerative changes consistent with arthritis. No visualized acute fracture or dislocation. Howev er, occult injury cannot be excluded. Recommend short interval imaging follow-up in 7-10 days as clin ically indicated for additional evaluation. Reviewed by: Heidy Meza MD on 11/11/2020 5:05 PM [facility] Approved by: Heidy Meza MD on 11/11/2020 5:05 PM [facility] Station ID: [id number]
== END 2020-11-11 23:59 | disposition home or self-care (01) ==
LOC: DI 10:00
PROVIDERS: ATTEND Family Medicine
DX: Z78.0 Asymptomatic menopausal state (principal); M25.531 Pain in right wrist; M18.11 Unilateral primary osteoarthritis of first carpometacarpal joint, right hand

== ENCOUNTER 2021-02-03 08:00 | Outpatient (CLI) | payer MEDICARE, OTHER ==
[2021-02-03 12:27] LABS: ALBUMIN 4.1 g/dL (3.2-5.5); ALBUMIN/GLOBULIN RATIO 1.6 (1.0-2.2); ALKALINE PHOSPHATASE 85 IU/L (42-121); ALT ALANINE AMINOTRANSFERASE 23 IU/L (10-60); AST ASPARTATE AMINOTRANSFERASE 23 IU/L (10-42); BILIRUBIN,TOTAL 0.8 mg/dL (0.2-1.0); BUN - BLOOD UREA NITROGEN 20 mg/dL (6-20); CALCIUM 9.8 mg/dL (8.5-10.3); CARBON DIOXIDE - CO2 29 mmol/L (21-32); CHLORIDE 103 mmol/L (101-111); CHOL/HDL RATIO 3.9 (<4.4); CHOLESTEROL 190 mg/dL; CREATININE 0.8 mg/dL (0.4-1.0); GFR - MDRD 69 (>89); GLUCOSE 109 mg/dL (70-100); HDL CHOLESTEROL 49 mg/dL; LDL CHOLESTEROL,CALCULATED 123 mg/dL; LDL/HDL RATIO 2.5 (<4.4); POTASSIUM 4.1 mmol/L (3.5-5.0); SODIUM 141 mmol/L (135-145); TOTAL PROTEIN 6.6 g/dL (6.7-8.2); TRIGLYCERIDES 90 mg/dL; VLDL CHOLESTEROL 18 mg/dL
[2021-02-03 12:37] LABS: THYROID STIMULATING HORMONE 1.46 uIU/mL (0.34-5.60)
[2021-02-03 12:50] LABS: ESTIMATED AVERAGE GLUCOSE 117 mg/dL (70-100); HEMOGLOBIN A1c% 5.7 % (4.27-6.07)
[2021-02-03 13:15] LABS: BASOPHILS % (AUTO) 0.8 %; EOSINOPHILS # (AUTO) 0.2 10^3/uL (0.0-0.7); EOSINOPHILS % (AUTO) 5.4 %; HCT - HEMATOCRIT 45.9 % (37.0-47.0); HGB - HEMOGLOBIN 15.1 g/dL (12.0-16.0); LYMPHOCYTES # (AUTO) 1.5 10^3/uL (1.5-3.5); MEAN CORPUSCULAR HEMOGLOBIN 30.8 pg (27.0-31.0); MEAN CORPUSCULAR HGB CONC 32.9 g/dL (32.0-36.0); MEAN CORPUSCULAR VOLUME 93.7 fL (81.0-99.0); MEAN PLATELET VOLUME 10.5 fL (7.9-10.8); MONOCYTES # (AUTO) 0.4 10^3/uL (0.0-1.0); MONOCYTES % (AUTO) 10.3 %; NEUTROPHILS # (AUTO) 1.6 10^3/uL (1.5-6.6); NEUTROPHILS % (AUTO) 42.2 %; PLT - PLATELET COUNT 235 10^3/uL (130-450); RED CELL DISTRIBUTION WIDTH 13.7 % (12.0-15.0); WHITE BLOOD COUNT 3.7 x10^3/uL (4.8-10.8)
== END 2021-02-03 23:59 | disposition home or self-care (01) ==
LOC: LAB.WCP 08:00
PROVIDERS: ATTEND Family Medicine
DX: R03.0 Elevated blood-pressure reading, without diagnosis of hypertension (principal); E03.0 Congenital hypothyroidism with diffuse goiter; E78.5 Hyperlipidemia, unspecified; R73.01 Impaired fasting glucose; E03.9 Hypothyroidism, unspecified
CPT/HCPCS: 36415; 80053; 80061; 83036; 83721; 84443; 85025

== ENCOUNTER 2021-02-08 15:31 | Outpatient (CLI) | payer MEDICARE, OTHER ==
--- NOTE | 2021-02-08 16:31 | XRAY Report ---
PROCEDURE: Lumbar Spine 2 View INDICATIONS: ACUTE LOW BACK PX TECHNIQUE: 2 views of the lumbar spine were acquired. COMPARISON: None. FINDINGS: Bones: 5 [id number] vertebrae are present. There is normal bony alignment. Multilevel disc spa ce narrowing and endplate osteophyte formation. Facet hypertrophy throughout the mid and lower lumbar spine. No vertebral body compression fractures. No suspicious bony lesions. Soft tissues: Overlying bowel gas pattern is normal. No suspicious soft tissue calcifications. IMPRESSION: Multilevel degenerative disc and facet disease. No acute fracture. No osseous lesion. If symptoms and/or clinical suspicion for pathology continue, further assessment with repeat plain film s, or advanced imaging (e.g., CT, MRI, or bone scan) is recommended for further assessment. Reviewed by: Deedee Limon MD on 02/08/2021 4:30 PM PDT Approved by: Deedee Limon MD on 02/08/2021 4:30 PM PDT Station ID: [id number]
--- NOTE | 2021-02-08 16:32 | XRAY Report ---
PROCEDURE: Hip w/Pelvis 1V RT INDICATIONS: R HIP PX TECHNIQUE: AP pelvis with lateral view(s) of the bilateral hip(s). COMPARISON: None. FINDINGS: Bones: No fractures or dislocations. Pelvic ring appears intact. No suspicious bony lesions. Mild joint space narrowing and periarticular osteophyte formation at the bilateral hip joints. Soft tissues: The visualized bowel gas pattern is normal. No suspicious soft tissue calcifications. IMPRESSION: Mild bilateral hip osteoarthritis. No acute fracture. No osseous lesion. If symptoms and /or clinical suspicion for pathology continue, further assessment with repeat plain films, or advance d imaging (e.g., CT, MRI, or bone scan) is recommended for further assessment. Reviewed by: Deedee Limon MD on 02/08/2021 4:30 PM PDT Approved by: Deedee Limon MD on 02/08/2021 4:30 PM PDT Station ID: [id number]
== END 2021-02-08 15:32 | disposition home or self-care (01) ==
LOC: DI.N 15:31
PROVIDERS: ATTEND Family Medicine
DX: M47.816 Spondylosis without myelopathy or radiculopathy, lumbar region (principal); M51.36 Other intervertebral disc degeneration, lumbar region; M16.0 Bilateral primary osteoarthritis of hip

== ENCOUNTER 2021-04-08 09:06 | Outpatient (CLI) | payer MEDICARE, OTHER ==
[2021-04-08 11:49] LABS: INR 1.1 (0.8-1.2); PT - PROTHROMBIN TIME 12.4 secs (9.9-12.6)
[2021-04-08 12:02] LABS: PARTIAL THROMBOPLASTIN TIME 29.2 secs (24.9-33.3)
[2021-04-08 12:06] LABS: HCT - HEMATOCRIT 45.8 % (37.0-47.0); HGB - HEMOGLOBIN 14.8 g/dL (12.0-16.0); MEAN CORPUSCULAR HEMOGLOBIN 30.1 pg (27.0-31.0); MEAN CORPUSCULAR HGB CONC 32.3 g/dL (32.0-36.0); MEAN CORPUSCULAR VOLUME 93.3 fL (81.0-99.0); MEAN PLATELET VOLUME 10.8 fL (7.9-10.8); RED BLOOD COUNT 4.91 10^6/uL (4.20-5.40); RED CELL DISTRIBUTION WIDTH 13.9 % (12.0-15.0); WHITE BLOOD COUNT 4.4 x10^3/uL (4.8-10.8)
== END 2021-04-08 09:07 | disposition home or self-care (01) ==
LOC: LAB.N 09:06
PROVIDERS: ATTEND Family Medicine
DX: R23.2 Flushing (principal)
CPT/HCPCS: 36415; 85025; 85027; 85610; 85730

== ENCOUNTER 2021-06-22 08:00 | Outpatient (CLI) | payer MEDICARE, OTHER ==
[2021-06-22 12:32] LABS: BASOPHILS % (AUTO) 0.5 %; EOSINOPHILS # (AUTO) 0.2 10^3/uL (0.0-0.7); EOSINOPHILS % (AUTO) 4.2 %; HCT - HEMATOCRIT 46.7 % (37.0-47.0); HGB - HEMOGLOBIN 14.6 g/dL (12.0-16.0); LYMPHOCYTES # (AUTO) 1.5 10^3/uL (1.5-3.5); LYMPHOCYTES % (AUTO) 40.2 %; MEAN CORPUSCULAR HEMOGLOBIN 29.7 pg (27.0-31.0); MEAN CORPUSCULAR HGB CONC 31.3 g/dL (32.0-36.0); MEAN CORPUSCULAR VOLUME 94.9 fL (81.0-99.0); MEAN PLATELET VOLUME 10.4 fL (7.9-10.8); MONOCYTES # (AUTO) 0.3 10^3/uL (0.0-1.0); MONOCYTES % (AUTO) 8.4 %; NEUTROPHILS # (AUTO) 1.8 10^3/uL (1.5-6.6); NEUTROPHILS % (AUTO) 46.2 %; PLT - PLATELET COUNT 232 10^3/uL (130-450); RED BLOOD COUNT 4.92 10^6/uL (4.20-5.40); RED CELL DISTRIBUTION WIDTH 13.7 % (12.0-15.0); WHITE BLOOD COUNT 3.8 x10^3/uL (4.8-10.8)
[2021-06-22 12:35] LABS: ALBUMIN 3.9 g/dL (3.2-5.5); ALBUMIN/GLOBULIN RATIO 1.4 (1.0-2.2); BILIRUBIN,TOTAL 0.6 mg/dL (0.2-1.0); CALCIUM 9.7 mg/dL (8.5-10.3); CREATININE 0.9 mg/dL (0.4-1.0); POTASSIUM 4.5 mmol/L (3.5-5.0); TOTAL PROTEIN 6.6 g/dL (6.7-8.2)
[2021-06-22 12:42] LABS: THYROID STIMULATING HORMONE 1.05 uIU/mL (0.34-5.60)
== END 2021-06-22 23:59 | disposition home or self-care (01) ==
LOC: LAB.WCP 08:00
PROVIDERS: ATTEND Physician Assistant Medical
DX: I10 Essential (primary) hypertension (principal); E03.9 Hypothyroidism, unspecified; K21.9 Gastro-esophageal reflux disease without esophagitis
CPT/HCPCS: 36415; 80053; 84443; 85025

== ENCOUNTER 2022-01-25 10:58 | Outpatient (CLI) | payer MEDICARE, OTHER ==
[2022-01-25 18:36] LABS: CREATININE 0.8 mg/dL (0.4-1.0)
== END 2022-01-25 10:59 | disposition home or self-care (01) ==
LOC: LAB.N 10:58
PROVIDERS: ATTEND Family Medicine
DX: H53.2 Diplopia (principal); Z95.0 Presence of cardiac pacemaker
CPT/HCPCS: 36415; 82565

== ENCOUNTER 2022-08-28 11:38 | Emergency (ER) | payer MEDICARE, OTHER ==
--- NOTE | 2022-08-28 12:12 | ED Physician Documentation ---
History of Present Illness - Stated complaint Stated Complaint: NEAR SYNCOPE - Chief complaint Chief Complaint: Neuro - Additonal information Additional information: Patient 81-year-old female presenting today with chief complaint of near syn cope. Reports heart palpitations and feeling dizzy and lightheaded. This was immediately after getting up from a seated position. She describes this as a sensation of an "adrenaline gil". States that she has had this sensation in the past although infrequently. Expresses concern that her pacemaker may have "clicked on". Pacer was placed due to symptomatic bradycardia. Past medical additionally significant for hypothyroidism, gastric reflux, fibromyalgia. Review of Systems Ten Systems: 10 systems reviewed and negative Constitutional: denies: Fever Eyes: denies: Loss of vision Ears: denies: Loss of hearing Nose: denies: Rhinorrhea / runny nose Throat: denies: Dental pain / toothache Cardiac: reports: Palpitations. 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, Other - Present Medications Home Medications: Ambulatory Orders Medication Instructions Recorded Confirmed Levothyroxine Sodium [Synthroid] 100 mcg PO QDAC 04/28/13 05/10/20 Multivitamin [Theragran] 1 each PO DAILY 11/06/19 05/10/20 [place]-3/Dha/Epa/Fish Oil [Fish Oil 1,000 mg PO BID 11/06/19 05/10/20 1,000 mg Softgel] Simvastatin [Zocor] 40 mg PO QPM 11/06/19 05/10/20 Azithromycin [Zithromax] PRN 05/10/20 Albuterol Sulf [Ventolin Hfa 1 - 2 puffs INH Q4HR PRN #1 inhaler 08/02/20 Inhaler] Cetirizine [ZyrTEC] 10 mg PO DAILY #15 tablet 08/06/20 Meclizine [Antivert] 25 mg PO Q6H PRN #30 tablet 08/06/20 dexAMETHasone [Decadron] 4 mg PO DAILY #5 tablet 08/06/20 diazePAM [Diazepam] 5 mg PO TID PRN #15 tablet 08/06/20 - Allergies Allergies/Adverse Reactions: Allergies Allergy/AdvReac Type Severity Reaction Status Date / Time epinephrine Allergy Severe hypoglycemi Verified 08/28/22 11:48 a Penicillins Allergy Severe Respiratory Verified 08/28/22 11:48 oxycodone HCl * Allergy Mild Rash Verified 08/28/22 11:48 [From Percocet] Sulfa (Sulfonamide Allergy Unknown Verified 08/28/22 11:48 Antibiotics) adhesive tape AdvReac peels skin Verified 08/28/22 11:48 off - Social History Does the pt smoke?: No Smoking Status: Never smoker Does the pt drink ETOH?: Yes Does the pt have substance abuse?: No - Immunizations Immunizations are current?: Yes - POLST Patient has POLST: No PD ED PE NORMAL - Vitals Vital signs reviewed: Yes - General General: Alert and oriented X 3, No acute distress - HEENT HEENT: Atraumatic - Neck Neck: Supple, no meningeal sign - Cardiac Cardiac: RRR, No gallop, Strong equal pulses - Respiratory Respiratory: No respiratory distress, Clear bilaterally - Abdomen Abdomen: Normal bowel sounds - Female Female : Deferred - Rectal Rectal: Deferred - Derm Derm: Normal color - Extremities Extremities: No deformity - Neuro Neuro: Alert and oriented X 3, licensed 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 nurse 2-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, No motor deficit, No sensory deficit, Normal speech Results - Vitals Vitals: Vital Signs - 24 hr 08/28/22 08/28/22 11:45 12:16 Temperature 36.5 C Heart Rate 68 Heart Rate [ 74 Sitting] Heart Rate [ 77 Standing] Heart Rate [ 72 Supine] Respiratory 18 Rate Blood Pressure 144/71 H Blood Pressure 144/79 H [Sitting] Blood Pressure 122/71 [Standing] Blood Pressure 128/60 [Supine] O2 Saturation 97 Oxygen O2 Source Room air - EKG (time done) 1145 Rate: Rate (enter#) (72) Rhythm: NSR [place]: Normal Intervals: 1st degree AVB QRS: Normal Ischemia: Normal ST segments Compare to prior EKG: Unchanged from prior EKG - Labs Labs: Laboratory Tests 08/28/22 08/28/22 08/28/22 12:09 12:09 12:09 WBC 5.2 RBC 4.92 Hgb 14.8 Hct 46.3 MCV 94.1 MCH 30.1 MCHC 32.0 RDW 13.3 Plt Count 199 MPV 10.5 Neut # (Auto) 3.1 Lymph # (Auto) 1.4 L [place] # (Auto) 0.5 Eos # (Auto) 0.2 Baso # (Auto) 0.0 Absolute Nucleated RBC 0.00 Nucleated RBC % 0.0 PT 11.5 INR 1.0 Sodium 139 Potassium 4.3 Chloride 103 Carbon Dioxide 28 Anion Gap 8.0 BUN 20 Creatinine 0.7 Estimated GFR (MDRD) 80 L Glucose 80 Calcium 9.4 Total Bilirubin 0.5 AST 17 ALT 18 Alkaline Phosphatase 83 Total Creatine Kinase 72 Total Protein 6.6 L Albumin 4.0 Globulin 2.6 Albumin/Globulin Ratio 1.5 Lipase 40 Urine Color Urine Clarity Urine pH Ur Specific [place] Urine Protein Urine Glucose (UA) Urine Ketones Urine Occult Blood Urine Nitrite Urine Bilirubin Urine Urobilinogen Ur Leukocyte Esterase Ur Microscopic Review Urine Culture Comments 08/28/22 13:25 WBC RBC Hgb Hct MCV MCH MCHC RDW Plt Count MPV Neut # (Auto) Lymph # (Auto) [place] # (Auto) Eos # (Auto) Baso # (Auto) Absolute Nucleated RBC Nucleated RBC % PT INR Sodium Potassium Chloride Carbon Dioxide Anion Gap BUN Creatinine Estimated GFR (MDRD) Glucose Calcium Total Bilirubin AST ALT Alkaline Phosphatase Total Creatine Kinase Total Protein Albumin Globulin Albumin/Globulin Ratio Lipase Urine Color LT. YELLOW Urine Clarity CLEAR Urine pH 6.0 Ur Specific [place] <=1.005 Urine Protein NEGATIVE Urine Glucose (UA) NEGATIVE Urine Ketones NEGATIVE Urine Occult Blood NEGATIVE Urine Nitrite NEGATIVE Urine Bilirubin NEGATIVE Urine Urobilinogen 0.2 (NORMAL) Ur Leukocyte Esterase NEGATIVE Ur Microscopic Review NOT INDICATED Urine Culture Comments NOT INDICATED PD MEDICAL DECISION MAKING - ED course Complexity details: reviewed results, re-evaluated patient, d/w patient ED course: Patient 81-year-old female presenting to the emergency department after near syncopal episode. Had episode of palpitations immediately after standing from a sitting position with associated lightheadedness. No loss of consciousness or head trauma identified. Patient does have Medtronic pacer in place for symptomatic bradycardia. Sinus rhythm on EKG here in the emergency department. Medtronic was interrogated, it is functioning appropriately per report from their agent. Labs and urine studies here in the emergency department benign. Had detailed discussion with patient as well as with patient's about all findings. At this time they request that they would like to leave the emergency department with intent to follow-up with her primary care doctor as well as with her lens inspector as needed. They were given explicit return precautions prior to discharge. Departure - Departure Disposition: 01 Home, Self Care Clinical Impression: Near syncope Instructions: ED Near Syncope Unkn Comments: Please follow-up with both your primary care doctor as well as with your lens inspector as soon as possible. If it anytime you have any new or worsening symptoms please not hesitate to return.
[2022-08-28 12:15] LABS: BASOPHILS % (AUTO) 0.4 %; EOSINOPHILS # (AUTO) 0.2 10^3/uL (0.0-0.7); HCT - HEMATOCRIT 46.3 % (37.0-47.0); HGB - HEMOGLOBIN 14.8 g/dL (12.0-16.0); LYMPHOCYTES # (AUTO) 1.4 10^3/uL (1.5-3.5); MEAN CORPUSCULAR HEMOGLOBIN 30.1 pg (27.0-31.0); MEAN CORPUSCULAR VOLUME 94.1 fL (81.0-99.0); MEAN PLATELET VOLUME 10.5 fL (7.9-10.8); MONOCYTES # (AUTO) 0.5 10^3/uL (0.0-1.0); MONOCYTES % (AUTO) 9.6 %; NEUTROPHILS # (AUTO) 3.1 10^3/uL (1.5-6.6); NEUTROPHILS % (AUTO) 59.6 %; PLT - PLATELET COUNT 199 10^3/uL (130-450); RED BLOOD COUNT 4.92 10^6/uL (4.20-5.40); RED CELL DISTRIBUTION WIDTH 13.3 % (12.0-15.0); WHITE BLOOD COUNT 5.2 x10^3/uL (4.8-10.8)
[2022-08-28 12:20] LABS: PT - PROTHROMBIN TIME 11.5 secs (9.9-12.6)
[2022-08-28 12:28] LABS: ALBUMIN/GLOBULIN RATIO 1.5 (1.0-2.2); BILIRUBIN,TOTAL 0.5 mg/dL (0.2-1.0); CALCIUM 9.4 mg/dL (8.5-10.3); CREATININE 0.7 mg/dL (0.4-1.0); POTASSIUM 4.3 mmol/L (3.5-5.0); TOTAL PROTEIN 6.6 g/dL (6.7-8.2)
[2022-08-28 13:32] LABS: BILIRUBIN,URINE NEGATIVE (NEGATIVE); GLUCOSE, URINE (UA) NEGATIVE (NEGATIVE); KETONES,URINE (UA) NEGATIVE (NEGATIVE); LEUKOCYTE ESTERASE, URINE NEGATIVE (NEGATIVE); NITRITE,URINE NEGATIVE (NEGATIVE); OCCULT BLOOD,URINE NEGATIVE (NEGATIVE); PROTEIN,URINE NEGATIVE (NEGATIVE); UROBILINOGEN,URINE 0.2 (NORMAL) E.U./dL (NORMAL)
[2022-08-28 13:38] LABS: CLARITY,URINE CLEAR (CLEAR)
[2022-08-28 14:19] VITALS: BP 131/71
== END 2022-08-28 14:25 | disposition home or self-care (01) ==
LOC: EDUNIT# → ED 11:38
DX: R55 Syncope and collapse (principal); Z95.0 Presence of cardiac pacemaker
CPT/HCPCS: 36415; 80053; 81001; 81003; 82550; 83690; 85025; 85610; 87086; 93005; 99282; 99283

== ENCOUNTER 2022-09-12 09:46 | Outpatient (CLI) | payer MEDICARE, OTHER ==
[2022-09-12 13:16] LABS: THYROID STIMULATING HORMONE 0.8 uIU/mL (0.34-5.60)
[2022-09-12 13:26] LABS: CHOL/HDL RATIO 4.1 (<4.4); CHOLESTEROL 168 mg/dL; HDL CHOLESTEROL 41 mg/dL; LDL CHOLESTEROL,CALCULATED 102 mg/dL; LDL/HDL RATIO 2.5 (<4.4); TRIGLYCERIDES 125 mg/dL; VLDL CHOLESTEROL 25 mg/dL
== END 2022-09-12 09:47 | disposition home or self-care (01) ==
LOC: LAB.N 09:46
PROVIDERS: ATTEND Internal Medicine
DX: E78.5 Hyperlipidemia, unspecified (principal); E03.9 Hypothyroidism, unspecified
CPT/HCPCS: 36415; 80061; 83721; 84443

== ENCOUNTER 2023-02-03 10:23 | Outpatient (CLI) | payer MEDICARE | END 2023-02-03 23:59 | disposition critical access hospital (66) | LOC: EMS 10:23 | DX: R07.9 Chest pain, unspecified (principal) | CPT/HCPCS: A0425; A0429 ==

== ENCOUNTER 2023-02-03 10:37 | Emergency (ER) | payer MEDICARE, OTHER ==
--- NOTE | 2023-02-03 10:53 | ED Physician Documentation ---
PD HPI CHEST PAIN - Stated complaint Stated Complaint: CP - History obtained from History obtained from: Patient, Family, EMS - History of Present Illness Timing - onset: Enter time (0900), Today Timing - onset during: Eating Timing - duration: Minutes Timing - details: Abrupt onset, Now resolved Pain level max: 10 Pain level now: 0 Quality: Pressure, Sharp, Pain Location: Substernal, Left chest Radiation: Back Improved by: Other (vomiting) Worsened by: Exertion Associated symptoms: Shortness of air, Diaphoresis Similar symptoms before: Diagnosis (has had issue previously with chest pain related to eating after fundoplication) Recently seen: Not recently seen - Additional information Additional information: 82-year-old Iesha Youngblood has a prior history of bradycardia and pacemaker placement as well as a prior fundoplication for severe reflux. This morning she was eating breakfast when she developed the sudden onset of severe epigastric pain radiating into her chest and this was worse than she has ever had previously. She asked her to call 911. He wanted to wait so she called the neighbor who called 911 and the patient was brought to the hospital. Her pain has now resolved. She states the pain lasted maybe 10 minutes. She has had a stress test done last summer which was normal. She had a pacer placed for prolonged pauses. She has a history of factor V Leiden and she is not on medications she has not had an event. She has a family history of factor V Leiden and multiple family members who have all been affected. Review of Systems Constitutional: denies: Fever, Chills Eyes: denies: Decreased vision Ears: denies: Ear pain Nose: reports: Rhinorrhea / runny nose, Congestion, Sinus pressure / pain Throat: denies: Sore throat Cardiac: reports: Chest pain / pressure. denies: Palpitations, Pedal edema, Calf pain Respiratory: reports: Cough. 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, Other - Present Medications Home Medications: Ambulatory Orders Medication Instructions Recorded Confirmed Levothyroxine Sodium [Synthroid] 100 mcg PO QDAC 04/28/13 02/03/23 Multivitamin [Theragran] 1 each PO DAILY 11/06/19 02/03/23 [place]-3/Dha/Epa/Fish Oil [Fish Oil 1,000 mg PO BID 11/06/19 02/03/23 1,000 mg Softgel] Simvastatin [Zocor] 80 mg PO QPM 11/06/19 02/03/23 Azithromycin [Zithromax] PRN 05/10/20 Albuterol Sulf [Ventolin Hfa 1 - 2 puffs INH Q4HR PRN #1 inhaler 08/02/20 Inhaler] Cetirizine [ZyrTEC] 10 mg PO DAILY #15 tablet 08/06/20 02/03/23 Meclizine [Antivert] 25 mg PO Q6H PRN #30 tablet 08/06/20 dexAMETHasone [Decadron] 4 mg PO DAILY #5 tablet 08/06/20 diazePAM [Diazepam] 5 mg PO TID PRN #15 tablet 08/06/20 02/03/23 - Allergies Allergies/Adverse Reactions: Allergies Allergy/AdvReac Type Severity Reaction Status Date / Time epinephrine Allergy Severe hypoglycemi Verified 02/03/23 11:00 a Penicillins Allergy Severe Respiratory Verified 02/03/23 11:00 oxycodone HCl * Allergy Mild Rash Verified 02/03/23 11:00 [From Percocet] Sulfa (Sulfonamide Allergy Unknown Verified 02/03/23 11:00 Antibiotics) adhesive tape AdvReac peels skin Verified 02/03/23 11:00 off - Social History Does the pt smoke?: No Smoking Status: Never smoker Does the pt drink ETOH?: Yes Does the pt have substance abuse?: No - Immunizations Immunizations are current?: Yes - POLST Patient has POLST: No PD ED PE NORMAL - Vitals Vital signs reviewed: Yes - General General: Alert and oriented X 3, No acute distress, Well developed/nourished - HEENT HEENT: Atraumatic, PERRL, EOMI - Neck Neck: Supple, no meningeal sign, No bony TTP - Cardiac Cardiac: RRR, Other (2/6 holosystolic murmer at LSB) - Respiratory Respiratory: No respiratory distress, Clear bilaterally - Abdomen Abdomen: Normal bowel sounds, Soft, Non tender, Non distended, No organomegaly - Back Back: No CVA TTP, No spinal TTP - Derm Derm: Normal color, Warm and dry, No rash - Extremities Extremities: No deformity, No edema - Neuro Neuro: Alert and oriented X 3, orthophoto tech/draftsman 2-12 intact, No motor deficit, No sensory deficit, Normal speech Eye Opening: Spontaneous Motor: Obeys Commands Verbal: Oriented GCS Score: 15 - Psych Psych: Normal mood, Normal affect Results - Vitals Vitals: Vital Signs - 24 hr 02/03/23 02/03/23 10:56 13:00 Temperature 37.1 C Heart Rate 74 66 Respiratory 13 13 Rate Blood Pressure 161/99 H 124/75 O2 Saturation 98 92 Oxygen O2 Source Room air - EKG (time done) 1049 EKG releavant findings:: EKG personally interpreted by author of this note. Relevant findings are: Rate: Rate (enter#) (68) Rhythm: NSR Intervals: Prolonged DC (borderline ) Ischemia: Normal ST segments Compare to prior EKG: Old EKG unavailable Computer interpretation: Agree with computer - Labs Labs: Laboratory Tests 02/03/23 02/03/23 02/03/23 10:58 10:58 10:58 WBC 4.5 L RBC 4.58 Hgb 13.9 Hct 43.4 MCV 94.8 MCH 30.3 MCHC 32.0 RDW 13.6 Plt Count 206 MPV 10.2 Neut # (Auto) 2.9 Lymph # (Auto) 1.1 L [place] # (Auto) 0.4 Eos # (Auto) 0.1 Baso # (Auto) 0.0 Absolute Nucleated RBC 0.00 Nucleated RBC % 0.0 Sodium 140 Potassium 4.2 Chloride 105 Carbon Dioxide 28 Anion Gap 7.0 BUN 19 Creatinine 1.0 Estimated GFR (MDRD) 53 L Glucose 97 Calcium 9.0 Total Bilirubin 0.5 AST 18 ALT 20 Alkaline Phosphatase 69 Troponin I High Sens 4.2 Total Protein 6.2 L Albumin 3.8 Globulin 2.4 Albumin/Globulin Ratio 1.6 Lipase 41 02/03/23 13:08 WBC RBC Hgb Hct MCV MCH MCHC RDW Plt Count MPV Neut # (Auto) Lymph # (Auto) [place] # (Auto) Eos # (Auto) Baso # (Auto) Absolute Nucleated RBC Nucleated RBC % Sodium Potassium Chloride Carbon Dioxide Anion Gap BUN Creatinine Estimated GFR (MDRD) Glucose Calcium Total Bilirubin AST ALT Alkaline Phosphatase Troponin I High Sens 4.3 Total Protein Albumin Globulin Albumin/Globulin Ratio Lipase - Rads (name of study) chest Relevant Findings:: Prelim report reviewed (Impression: No acute cardiopulmonary abnormality), EMP independent interpretation of test PD Medical Decision Making - ED course Complexity details: reviewed results, re-evaluated patient, considered differential, d/w patient, d/w family Reviewed Lab Results: We reviewed a complete blood count with a white blood cell count of 4.5 and normal hemoglobin hematocrit and platelets chemistries were unremarkable normal electrolytes normal kidney and liver function high-sensitivity troponin was negative at 4.2. ED course: Iesha Youngblood is an 82-year-old female who has a pacemaker in place and has had a negative stress test done less than a year ago. She has developed acute substernal chest pain today that she felt was likely related to something that she ate as she has had the symptoms previously. When her pain became completely intolerable she came to the hospital by ambulance and has had resolution of her pain after vomiting. She has had this sequence happen before she has never had pain this bad before. We evaluated the patient found to have a normal sinus rhythm and no evidence of ischemia. Her sensitive troponin was negative as well. Her symptoms resolved and have not returned. Her chest x-ray was without abnormality. The suspicion is that her pain is related to her attempt to vomit with her fundoplication. Her pain appears to be relieved. Departure - Departure Disposition: 01 Home, Self Care Clinical Impression: Atypical chest pain Condition: Stable Instructions: Fundoplication, ED Chest Pain Atypical Unkn Cause, ED GERD Follow-Up: Yair Muñiz MD [Primary Care Provider] - Comments: Tash, today looks like the pain you had in your chest is related to your stomach and esophagus as you suspected. We have found no evidence of damage to your heart on her evaluation here today and your symptoms have resolved as previously.
[2023-02-03 11:04] LABS: BASOPHILS % (AUTO) 0.2 %; EOSINOPHILS # (AUTO) 0.1 10^3/uL (0.0-0.7); EOSINOPHILS % (AUTO) 2.5 %; HCT - HEMATOCRIT 43.4 % (37.0-47.0); HGB - HEMOGLOBIN 13.9 g/dL (12.0-16.0); LYMPHOCYTES # (AUTO) 1.1 10^3/uL (1.5-3.5); LYMPHOCYTES % (AUTO) 24.7 %; MEAN CORPUSCULAR HEMOGLOBIN 30.3 pg (27.0-31.0); MEAN CORPUSCULAR VOLUME 94.8 fL (81.0-99.0); MEAN PLATELET VOLUME 10.2 fL (7.9-10.8); MONOCYTES # (AUTO) 0.4 10^3/uL (0.0-1.0); MONOCYTES % (AUTO) 7.8 %; NEUTROPHILS # (AUTO) 2.9 10^3/uL (1.5-6.6); NEUTROPHILS % (AUTO) 64.4 %; PLT - PLATELET COUNT 206 10^3/uL (130-450); RED BLOOD COUNT 4.58 10^6/uL (4.20-5.40); RED CELL DISTRIBUTION WIDTH 13.6 % (12.0-15.0); WHITE BLOOD COUNT 4.5 x10^3/uL (4.8-10.8)
--- NOTE | 2023-02-03 11:16 | XRAY Report ---
PROCEDURE: Chest 1 View X-Ray INDICATIONS: chest pain TECHNIQUE: One view of the chest was acquired. COMPARISON: 03/25/2020. FINDINGS: Surgical changes and devices: None. Lungs and pleura: No pleural effusions or pneumothorax. Lungs are clear. Mediastinum: Mediastinal contours appear normal. Heart size is normal. Bones and chest wall: No suspicious bony lesions. Overlying soft tissues appear unremarkable. IMPRESSION: No acute cardiopulmonary process. Reviewed by: Jamie Preston MD on 02/03/2023 11:15 AM PDT Approved by: Jamie Preston MD on 02/03/2023 11:15 AM PDT Station ID: [id number]
[2023-02-03 11:25] LABS: ALBUMIN 3.8 g/dL (3.2-5.5); ALBUMIN/GLOBULIN RATIO 1.6 (1.0-2.2); BILIRUBIN,TOTAL 0.5 mg/dL (0.2-1.0); POTASSIUM 4.2 mmol/L (3.5-5.0); TOTAL PROTEIN 6.2 g/dL (6.7-8.2)
[2023-02-03 14:16] VITALS: BP 121/68
== END 2023-02-03 14:19 | disposition home or self-care (01) ==
LOC: EDUNIT# → ED 10:37
DX: R07.89 Other chest pain (principal)
CPT/HCPCS: 36415; 80053; 83690; 84484; 85025; 93005; 99283; 99284

== ENCOUNTER 2023-09-07 09:27 | Outpatient (CLI) | payer MEDICARE ==
[2023-09-07 13:02] LABS: BASOPHILS % (AUTO) 0.5 %; EOSINOPHILS # (AUTO) 0.2 10^3/uL (0.0-0.7); EOSINOPHILS % (AUTO) 3.8 %; HCT - HEMATOCRIT 45.5 % (37.0-47.0); HGB - HEMOGLOBIN 14.4 g/dL (12.0-16.0); LYMPHOCYTES # (AUTO) 1.4 10^3/uL (1.5-3.5); LYMPHOCYTES % (AUTO) 33.1 %; MEAN CORPUSCULAR HEMOGLOBIN 29.8 pg (27.0-31.0); MEAN CORPUSCULAR HGB CONC 31.6 g/dL (32.0-36.0); MONOCYTES # (AUTO) 0.3 10^3/uL (0.0-1.0); MONOCYTES % (AUTO) 8.1 %; NEUTROPHILS # (AUTO) 2.3 10^3/uL (1.5-6.6); NEUTROPHILS % (AUTO) 54.5 %; PLT - PLATELET COUNT 224 10^3/uL (130-450); RED BLOOD COUNT 4.84 10^6/uL (4.20-5.40); RED CELL DISTRIBUTION WIDTH 13.2 % (12.0-15.0); WHITE BLOOD COUNT 4.2 x10^3/uL (4.8-10.8)
[2023-09-07 13:25] LABS: ALBUMIN 4.3 g/dL (3.2-5.5); ALBUMIN/GLOBULIN RATIO 2.3 (1.0-2.2); ALKALINE PHOSPHATASE 78 IU/L (42-121); ALT ALANINE AMINOTRANSFERASE 17 IU/L (10-60); AST ASPARTATE AMINOTRANSFERASE 18 IU/L (10-42); BILIRUBIN,TOTAL 0.5 mg/dL (0.2-1.0); BUN - BLOOD UREA NITROGEN 15 mg/dL (6-20); CALCIUM 9.8 mg/dL (8.5-10.3); CARBON DIOXIDE - CO2 31 mmol/L (21-32); CHLORIDE 105 mmol/L (101-111); CHOL/HDL RATIO 3.5 (<4.4); CHOLESTEROL 142 mg/dL; CREATININE 0.8 mg/dL (0.6-1.3); GFR - MDRD 69 (>89); GLUCOSE 103 mg/dL (74-104); HDL CHOLESTEROL 41 mg/dL; LDL CHOLESTEROL,CALCULATED 74 mg/dL; LDL/HDL RATIO 1.8 (<4.4); POTASSIUM 4.7 mmol/L (3.5-4.5); SODIUM 140 mmol/L (135-145); TOTAL PROTEIN 6.2 g/dL (6.4-8.9); TRIGLYCERIDES 135 mg/dL (48-352); VLDL CHOLESTEROL 27 mg/dL
[2023-09-07 13:36] LABS: THYROID STIMULATING HORMONE 1.15 uIU/mL (0.34-5.60)
[2023-09-07 13:37] LABS: ESTIMATED AVERAGE GLUCOSE 114 mg/dL (70-100); HEMOGLOBIN A1c% 5.6 % (4.27-6.07)
== END 2023-09-07 09:28 | disposition home or self-care (01) ==
LOC: LAB.N 09:27
PROVIDERS: ATTEND Internal Medicine
DX: I10 Essential (primary) hypertension (principal); E78.5 Hyperlipidemia, unspecified; R73.01 Impaired fasting glucose; E03.9 Hypothyroidism, unspecified
CPT/HCPCS: 36415; 80053; 80061; 83036; 83721; 84443; 85025

== ENCOUNTER 2023-11-28 16:15 | Emergency (ER) | payer MEDICARE ==
[2023-11-28 16:39] VITALS: BP 158/65; O2SAT 97
--- NOTE | 2023-11-28 16:52 | ED Physician Documentation ---
History of Present Illness - Stated complaint Stated Complaint: POST OP DISCOLORATION - Chief complaint Chief Complaint: General - History obtained from History obtained from: Patient - Additonal information Additional information: She had a trigger finger surgery earlier in the day on the left hand by Dr. Magallanes in [place] and was worried because of pallor of the fifth digit. There is no pain. 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, Other - Present Medications Home Medications: Ambulatory Orders Medication Instructions Recorded Confirmed Levothyroxine Sodium [Synthroid] 100 mcg PO QDAC 04/28/13 02/03/23 Multivitamin [Theragran] 1 each PO DAILY 11/06/19 02/03/23 [place]-3/Dha/Epa/Fish Oil [Fish Oil 1,000 mg PO BID 11/06/19 02/03/23 1,000 mg Softgel] Simvastatin [Zocor] 80 mg PO QPM 11/06/19 02/03/23 Azithromycin [Zithromax] PRN 05/10/20 Albuterol Sulf [Ventolin Hfa 1 - 2 puffs INH Q4HR PRN #1 inhaler 08/02/20 Inhaler] Cetirizine [ZyrTEC] 10 mg PO DAILY #15 tablet 08/06/20 02/03/23 Meclizine [Antivert] 25 mg PO Q6H PRN #30 tablet 08/06/20 dexAMETHasone [Decadron] 4 mg PO DAILY #5 tablet 08/06/20 diazePAM [Diazepam] 5 mg PO TID PRN #15 tablet 08/06/20 02/03/23 - Allergies Allergies/Adverse Reactions: Allergies Allergy/AdvReac Type Severity Reaction Status Date / Time epinephrine Allergy Severe hypoglycemi Verified 11/28/23 16:37 a Penicillins Allergy Severe Respiratory Verified 11/28/23 16:37 oxycodone HCl * Allergy Mild Rash Verified 11/28/23 16:37 [From Percocet] latex Allergy Hives Verified 11/28/23 16:37 Sulfa (Sulfonamide Allergy Unknown Verified 11/28/23 16:37 Antibiotics) adhesive tape AdvReac peels skin Verified 11/28/23 16:37 off - Social History Does the pt smoke?: No Smoking Status: Never smoker Does the pt drink ETOH?: Yes Does the pt have substance abuse?: No - Immunizations Immunizations are current?: Yes - POLST Patient has POLST: No PD ED PE NORMAL - Vitals Vital signs reviewed: Yes - General General: Alert and oriented X 3, No acute distress - Abdomen Abdomen: Normal bowel sounds, Soft, Non tender - Extremities Extremities: Other (She has good cap refill in the left fifth finger, minimal if any pallor. Pulse oximetry waveform in that digit is normal.) - Neuro Neuro: Alert and oriented X 3 Results - Vitals Vitals: Vital Signs - 24 hr 11/28/23 16:31 Temperature 36.6 C Heart Rate 66 Respiratory 16 Rate Blood Pressure 158/65 H O2 Saturation 97 Oxygen O2 Source Room air Departure - Departure Disposition: 01 Home, Self Care Clinical Impression: Skin pallor Condition: Good Record reviewed to determine appropriate education?: Yes Comments: You do have good blood flow to that finger so no need to worry much about it and you can follow the postoperative plan you were given earlier in the day by Dr. Riggins. Return for new or worsening symptoms. Note to [facility], Please copy these records to Dr. Yassine Riggins in [place], fax number [phone] Forms: PCP List
== END 2023-11-28 16:59 | disposition home or self-care (01) ==
LOC: ED 16:15
DX: Z47.89 Encounter for other orthopedic aftercare (principal)
CPT/HCPCS: 99281; 99283

== ENCOUNTER 2023-12-12 13:13 | Outpatient (CLI) | payer MEDICARE ==
--- NOTE | 2023-12-12 18:54 | CT Report ---
PROCEDURE: Chest WO INDICATIONS: PULMONARY NODULE TECHNIQUE: A CT scan of the chest was performed. Intravenous contrast media was not administered. Images were re corded and evaluated at appropriate window settings. Reformats: axial MIP of the chest, coronal and s agittal. For radiation dose reduction, the following was used: automated exposure control, adjustment of mA and/or kV according to patient size. COMPARISON: 03/25/2020 FINDINGS: Image quality: Diagnostic. Chest wall and lower neck: The thyroid Gland is diminutive. No suspicious chest wall masses. No axill usama or supraclavicular adenopathy by size. Lungs and pleura: Part spiculated and part of rounded nodule with coarse central calcification is see n in the subpleural right lower lobe, stable in size and morphology compared to the prior study. A pu nctate juxta fissural nodular nodule is also redemonstrated and now calcified. No suspicious new nodu les or lung masses. No groundglass opacities or consolidations. No pleural effusions or pleural plaqu ing. Central and peripheral airways are normal caliber without bronchial wall thickening or bronchiec tasis. Mediastinum: Heart size is normal with an implanted surgical device present. Dense mitral calcificati on. Moderate aortic valvular calcification. No pericardial effusion. No large vessel abnormality. No mediastinal adenopathy by size criteria. Punctate calcifications mediastinum and hilar lymph nodes. Normal esophagus without hiatal hernia. Bones: No aggressive osseous abnormality. Upper Abdomen: Surgical changes at the GE junction. Small hypodensities in the liver as well as punct ate calcifications seen occasionally. Otherwise normal upper abdominal organs. IMPRESSION: Stable calcified and part calcified lung nodules consistent with granulomatous disease. No suspicious lung nodule. Prior cardiac interventions. Reviewed by: Barbara Fiore MD on 12/12/2023 6:52 PM PST Approved by: Barbara Fiore MD on 12/12/2023 6:52 PM PST Station ID: [id number]
== END 2023-12-12 13:14 | disposition home or self-care (01) ==
LOC: DI 13:13
PROVIDERS: ATTEND Internal Medicine
DX: R91.8 Other nonspecific abnormal finding of lung field (principal)

== ENCOUNTER 2024-02-14 15:02 | Outpatient (CLI) | payer MEDICARE ==
--- NOTE | 2024-02-14 16:10 | Ultrasound Report ---
PROCEDURE: Duplex Ext Veins Right INDICATIONS: CONTUSION OF R LOWER LEG TECHNIQUE: Real-time imaging, as well as color and pulse Doppler interrogation, were performed of the lower extr emity deep veins from the inguinal ligament to the popliteal fossa. Attempted visualization of the ca lf veins was performed. COMPARISON: None. FINDINGS: The deep veins are normally compressible, and free of intraluminal thrombus. Color and pu lse Doppler demonstrate normal phasic intraluminal flow. There is normal augmentation response to di stal compression maneuver. IMPRESSION: No deep venous thrombosis of the visualized lower extremity. Reviewed by: Jamie Preston MD on 02/14/2024 4:09 PM PDT Approved by: Jamie Preston MD on 02/14/2024 4:09 PM PDT Station ID: [id number]
--- NOTE | 2024-02-14 16:23 | XRAY Report ---
Tib/Fib RT HISTORY: 83 years of age, CONTUSION OF R LOWER LEG TECHNIQUE: Tib/Fib RT COMPARISON: None. FINDINGS/IMPRESSION: No acute fracture or dislocation. Reviewed by: Sridevi Wolfe MD on 02/14/2024 4:22 PM PDT Approved by: Sridevi Wolfe MD on 02/14/2024 4:22 PM PDT Station ID: [id number]
--- NOTE | 2024-02-14 16:27 | XRAY Report ---
Ankle 3+V RT HISTORY: 83 years of age, CONTUSION OF R LOWER LEG TECHNIQUE: Ankle 3+V RT COMPARISON: None. FINDINGS/IMPRESSION: Mild medial malleolar soft tissue swelling. Small plantar calcaneus enthesophyte. No acute fracture o r dislocation. Joint spaces are well maintained. Reviewed by: Sridevi Wolfe MD on 02/14/2024 4:25 PM PDT Approved by: Sridevi Wolfe MD on 02/14/2024 4:25 PM PDT Station ID: [id number]
== END 2024-02-14 15:03 | disposition home or self-care (01) ==
LOC: DI 15:02
PROVIDERS: ATTEND Physician Assistant Medical
DX: S80.11XA Contusion of right lower leg, initial encounter (principal); M77.31 Calcaneal spur, right foot

== ENCOUNTER 2024-04-17 15:14 | Outpatient (CLI) | payer MEDICARE ==
--- NOTE | 2024-04-17 22:19 | XRAY Report ---
PROCEDURE: Cervical Spine w/Flex/Ext 6+V INDICATIONS: CERVICAL DEGENERATIVE JOINT DISEASE TECHNIQUE: 6 views of the cervical spine were acquired. COMPARISON: None. FINDINGS: Bones: No fractures or dislocations to the C7-T1 level. No suspicious bony lesions. Cervical straig htening is present. There is trace retrolisthesis of C3 on C4, C4 on C5, C5 on C6. Multilevel moderat e to severe degenerative disc space narrowing most severe from C4-5 through C6-7. Small nonbridging a nterior osteophytes are present most prominent at C5 and C6. Multilevel uncovertebral arthropathy is present. There is decreased range of motion between flexion and extension, with preserved normal bon y alignment. Severe foraminal narrowing is present at C4-5, C5-6 and C6-7 predominantly on the left. Soft tissues: Prevertebral soft tissues are normal in thickness. IMPRESSION: Multilevel degenerative changes most severe from C4-5 through C6-7. Reviewed by: Heidy Meza MD on 04/17/2024 10:17 PM PDT Approved by: Heidy Meza MD on 04/17/2024 10:17 PM PDT Station ID: [id number]
== END 2024-04-17 15:15 | disposition home or self-care (01) ==
LOC: DI 15:14
PROVIDERS: ATTEND Internal Medicine
DX: M50.321 Other cervical disc degeneration at C4-C5 level (principal); M47.812 Spondylosis without myelopathy or radiculopathy, cervical region; M43.12 Spondylolisthesis, cervical region; M48.02 Spinal stenosis, cervical region

== ENCOUNTER 2024-05-01 11:03 | Outpatient (CLI) | payer MEDICARE ==
--- NOTE | 2024-05-01 14:43 | CT Report ---
PROCEDURE: Lower Extremity RT WO INDICATIONS: R FOOT PAIN TECHNIQUE: Noncontrast 3-mm axial sections acquired from the distal tibial shaft to the talar dome, with coronal and sagittal reformats. For radiation dose reduction, the following was used: automated exposure c ontrol, adjustment of mA and/or kV according to patient size. COMPARISON: None. FINDINGS: Image quality: Excellent. Bones: No acute fracture or dislocation extending from the distal leg to the foot. Mild degenerative changes of the talonavicular articulation. Small plantar calcaneus enthesophyte. Soft tissues: Mild diffuse subcutaneous edema extending from the distal left leg, to the ankle. No d rainable fluid collection. The flexor, extensor, peroneal, and the distal Achilles tendon are unremarkable. Mild tendinosis of t he distal Achilles tendon. Moderate amount of fluid within [place] fat pad. Impression: 1.No acute osseous finding from the distal leg to the foot. 2.Subcutaneous edema . Moderate amount of fluid within the [place] fat pad, nonspecific. Reviewed by: Sridevi Wolfe MD on 05/01/2024 2:42 PM PDT Approved by: Sridevi Wolfe MD on 05/01/2024 2:42 PM PDT Station ID: [id number]
== END 2024-05-01 11:04 | disposition home or self-care (01) ==
LOC: DI 11:03
PROVIDERS: ATTEND Internal Medicine
DX: M79.671 Pain in right foot (principal); R93.89 Abnormal findings on diagnostic imaging of other specified body structures